=== PATIENT | male | born 1950 | race Caucasian/White ===

== ENCOUNTER 2018-04-18 13:24 | Outpatient (REF) | payer MEDICARE, BC, SELFPAY ==
[2018-04-18 14:46] LABS: HCT 42.4 % (40.0-50.0); HGB 14.8 g/dL (13.5-17.5); Mean Corp. HGB Concentration 34.9 g/dL (32.0-36.0); Mean Corpuscular Hemoglobin 32.7 pg (27.0-33.0); Mean Corpuscular Volume 93.6 fL (80-95); Mean Platelet Volume 10.5 fL (8.0-11.0); Platelet Count 221 x1000/uL (130-400); RBC 4.53 m/cumm (4.50-6.00); RBC Distribution Width 13.1 % (11.8-14.1); White Blood Cell Count 6.54 k/cumm (4.4-10.8)
[2018-04-19 09:47] LABS: PSA, Screening 1.2 ng/ml (0-4.5)
== END 2018-04-18 13:44 ==
LOC: NCHCN 13:24
PROVIDERS: Visit Provider Family Medicine
DX: N28.9 Disorder of kidney and ureter, unspecified (principal); Z12.5 Encounter for screening for malignant neoplasm of prostate
CPT/HCPCS: 84153; 85027

== ENCOUNTER → 2018-05-20 08:34 | Outpatient (BNVA) | payer MEDICARE, BC, SELFPAY | PROVIDERS: Referring Provider Family Medicine; Visit Provider Urology | DX: N40.1 Benign prostatic hyperplasia with lower urinary tract symptoms (principal); N52.01 Erectile dysfunction due to arterial insufficiency; I10 Essential (primary) hypertension; F17.210 Nicotine dependence, cigarettes, uncomplicated | CPT/HCPCS: 81003; 99205; 99215 ==

== ENCOUNTER 2018-08-31 10:08 | Outpatient (CLI) | payer MEDICARE, BC, SELFPAY | END 2018-08-31 10:28 | PROVIDERS: Visit Provider Internal Medicine Interventional Cardiology | DX: I99.9 Unspecified disorder of circulatory system (principal); I44.0 Atrioventricular block, first degree; I10 Essential (primary) hypertension | CPT/HCPCS: 99204; 99214; 93005; 93010 ==

== ENCOUNTER 2019-02-16 02:21 | Outpatient (CLI) | payer MEDICARE, BC, SELFPAY | END 2019-02-16 02:41 | PROVIDERS: PCP Family Medicine; Visit Provider Internal Medicine Interventional Cardiology | DX: I44.0 Atrioventricular block, first degree (principal); I49.1 Atrial premature depolarization; I44.1 Atrioventricular block, second degree; R00.1 Bradycardia, unspecified | CPT/HCPCS: 93225 ==

== ENCOUNTER 2019-02-18 13:17 | Outpatient (CLI) | payer MEDICARE, BC, SELFPAY ==
--- NOTE | 2019-02-20 11:31 | HOLTER_ITS ---
DATE OF DICTATION: February 20, 2019 48-HOUR STUDY Baseline rhythm sinus with first-degree AV block. Very frequent single PAC. No SVT. No atrial fibrillation. Rare single PVC. Eight couplet. No VT. Frequent Wenckebach-type block with occasional 2:1 cycling appreciated. Wenckebach block occurs in b oth nocturnal and daytime hours. Nocturnal heart rates as low as 30-35 bpm, sinus bradycardia with Wenckebach block. No symptoms. Average heart rate 69 bpm, range 46-110 bpm.
== END 2019-02-18 13:37 ==
PROVIDERS: PCP Family Medicine; Visit Provider Family Medicine
DX: I44.0 Atrioventricular block, first degree (principal); I49.1 Atrial premature depolarization; I44.1 Atrioventricular block, second degree; R00.1 Bradycardia, unspecified
CPT/HCPCS: 93226

== ENCOUNTER 2019-02-20 09:05 | Outpatient (CLI) | payer MEDICARE, BC, SELFPAY | END 2019-02-20 09:25 | PROVIDERS: PCP Family Medicine; Referring Provider Family Medicine; Visit Provider Internal Medicine Interventional Cardiology | DX: I44.0 Atrioventricular block, first degree (principal); I49.1 Atrial premature depolarization; I44.1 Atrioventricular block, second degree; R00.1 Bradycardia, unspecified | CPT/HCPCS: 93227 ==

== ENCOUNTER 2019-02-27 08:12 | Outpatient (CLI) | payer MEDICARE, BC, SELFPAY | END 2019-02-27 08:32 | PROVIDERS: PCP Family Medicine; Visit Provider Internal Medicine Interventional Cardiology | DX: I44.0 Atrioventricular block, first degree (principal); I10 Essential (primary) hypertension; Z79.82 Long term (current) use of aspirin | CPT/HCPCS: 93005; 93010; 99213 ==

== ENCOUNTER 2019-04-10 07:54 | Outpatient (CLI) | payer MEDICARE, BC, SELFPAY | END 2019-04-10 08:14 | PROVIDERS: PCP Family Medicine; Visit Provider Internal Medicine Interventional Cardiology | DX: I99.9 Unspecified disorder of circulatory system (principal); I44.30 Unspecified atrioventricular block; I10 Essential (primary) hypertension; Z79.82 Long term (current) use of aspirin | CPT/HCPCS: 93005; 93010; 99213 ==

== ENCOUNTER 2019-04-13 08:35 | Outpatient (REF) | payer MEDICARE, BC, SELFPAY ==
[2019-04-13 11:04] LABS: HCT 41.6 % (40.0-50.0); HGB 14.8 g/dL (13.5-17.5); Mean Corp. HGB Concentration 35.6 g/dL (32.0-36.0); Mean Corpuscular Volume 92.7 fL (80-95); Mean Platelet Volume 10.3 fL (8.0-11.0); Platelet Count 194 x1000/uL (130-400); RBC 4.49 m/cumm (4.50-6.00); RBC Distribution Width 12.5 % (11.8-14.1); White Blood Cell Count 4.58 k/cumm (4.4-10.8)
[2019-04-13 11:33] LABS: ALT 67 U/L (16-63); AST 28 U/L (15-37); Albumin 4.2 g/dL (3.4-5.0); Alkaline Phosphatase 56 U/L (46-116); Anion Gap 7.2 mmol/L (3-11); BUN 28 mg/dL (7-18); Bilirubin, Total 0.7 mg/dL (0.2-1.0); CO2 31.8 mmol/L (21.0-32.0); CREATININE 0.96 mg/dL (0.70-1.30); Calcium 9.8 mg/dL (8.5-10.1); Calculated LDL 101 mg/dL; Chloride 103 mmol/L (98-107); Cholesterol 182 mg/dL (50-200); Glucose 139 mg/dL (70-100); HDL Cholesterol 52 mg/dL (40-60); Potassium 4.6 mmol/L (3.5-5.1); Sodium 142 mmol/L (136-145); Triglyceride 149 mg/dL (30-150)
[2019-04-14 08:46] LABS: PSA, Screening 1.4 ng/ml (0-4.5)
== END 2019-04-13 08:55 ==
LOC: NCHCO 08:35
PROVIDERS: PCP Family Medicine; Visit Provider Family Medicine
DX: E78.5 Hyperlipidemia, unspecified (principal); N28.9 Disorder of kidney and ureter, unspecified; I10 Essential (primary) hypertension; Z12.5 Encounter for screening for malignant neoplasm of prostate
CPT/HCPCS: 80053; 80061; 84153; 85027

== ENCOUNTER 2019-07-04 09:30 | Outpatient (CLI) | payer MEDICARE, BC, SELFPAY ==
--- NOTE | 2019-07-04 10:56 | DI.RAD_ITS ---
EXAM: XR ANKLE LT COMPLETE CLINICAL HISTORY: LT ANKLE PAIN, M25.572 TECHNIQUE: 2D digital imaging was performed. COMPARISON: No exams were available for comparison FINDINGS: BONES: No acute fracture is present. No bony destructive lesion is seen. JOINTS:The ankle mortise is normally aligned. SOFT TISSUE: Normal. IMPRESSION: Unremarkable radiographs of the left ankle.
== END 2019-07-04 09:50 ==
PROVIDERS: PCP Family Medicine; Visit Provider Nurse Practitioner Family
DX: M25.572 Pain in left ankle and joints of left foot (principal)
CPT/HCPCS: 73610

== ENCOUNTER → 2019-11-21 09:07 | Outpatient (BNVA) | payer MEDICARE, BC, SELFPAY | PROVIDERS: PCP Family Medicine; Referring Provider Family Medicine; Visit Provider Orthopaedic Surgery | DX: M76.822 Posterior tibial tendinitis, left leg (principal) | CPT/HCPCS: 99201; 99213 ==

== ENCOUNTER 2019-11-29 00:38 | Outpatient (CLI) | payer MEDICARE, BC, SELFPAY ==
--- NOTE | 2019-11-29 | DI.MRI_ITS ---
EXAM: MR LOWER JOINT LT WO CLINICAL HISTORY: LT POSTERIOR TIBIAL TENDON TEAR TECHNIQUE: Multiplanar multisequence MRI was performed without intravenous contrast. COMPARISON: CR XR ANKLE LT COMPLETE from 07/04/2019 FINDINGS: BONES/JOINTS: No fracture or contusion pattern. Nonspecific subchondral cyst is seen in the distal ti tarah. The talar dome is smooth. The ankle mortise is maintained. No joint effusion is present. LIGAMENTS: The tibiofibular and calcaneofibular ligaments are intact. The talofibular ligaments are i ntact. The deltoid ligament is intact. The syndesmosis is unremarkable. Sinus tarsi is normal. MUSCULOTENDINOUS STRUCTURES: Achilles tendon: Unremarkable. Plantar fascia: Unremarkable. Anterior Extensor tendons: Unremarkable. Posterior Tibialis: Unremarkable. Flexor Digitorum longus: Unremarkable. Flexor Hallicus longus: Unremarkable. Peroneus longus: Unremarkable. Peroneus brevis:Unremarkable. SOFT TISSUES: Unremarkable. OTHER FINDINGS: None. IMPRESSION: Unremarkable MRI of the left ankle. DATA REPOSITORY:
== END 2019-11-29 00:58 ==
PROVIDERS: PCP Family Medicine; Visit Provider Orthopaedic Surgery
DX: M76.822 Posterior tibial tendinitis, left leg (principal)
CPT/HCPCS: 73721

== ENCOUNTER → 2019-12-05 08:45 | Outpatient (BNVA) | payer MEDICARE, BC, SELFPAY | PROVIDERS: PCP Family Medicine; Referring Provider Family Medicine; Visit Provider Orthopaedic Surgery | DX: M76.822 Posterior tibial tendinitis, left leg (principal) | CPT/HCPCS: 20550; 99213; J1030 ==

== ENCOUNTER → 2020-01-02 08:59 | Outpatient (BNVA) | payer MEDICARE, BC, SELFPAY | PROVIDERS: PCP Family Medicine; Referring Provider Family Medicine; Visit Provider Orthopaedic Surgery | DX: M76.822 Posterior tibial tendinitis, left leg (principal); Z98.890 Other specified postprocedural states | CPT/HCPCS: 99213 ==

== ENCOUNTER → 2020-04-23 11:39 | Outpatient (BNVA) | payer MEDICARE, BC, SELFPAY | PROVIDERS: PCP Family Medicine; Referring Provider Family Medicine; Visit Provider Orthopaedic Surgery | DX: M76.821 Posterior tibial tendinitis, right leg (principal); Z98.890 Other specified postprocedural states; I10 Essential (primary) hypertension | CPT/HCPCS: 20550; 99213; J1030 ==

== ENCOUNTER 2020-04-25 19:09 | Outpatient (REF) | payer MEDICARE, BC, SELFPAY ==
[2020-04-25 21:12] LABS: Abs Immature Grans 0.03 10^3/uL (0.0-0.06); Absolute Basophil Count 0.05 10^3/uL (0.0-0.2); Absolute Eosinophil Count 0.26 10^3/uL (0.0-0.7); Absolute Lymphocyte Count 1.89 10^3/uL (1.2-3.4); Absolute Monocyte Count 0.87 10^3/uL (0.1-0.8); Absolute Neutrophil Count 5.28 10^3/uL (1.2-6.7); Basophils % 0.6; Eosinophils % 3.1; HCT 43.6 % (40.0-50.0); HGB 15.2 g/dL (13.5-17.5); Immature Grans % 0.4; Lymphocytes % 22.6; MCH 32.5 pg (27.0-33.0); MCHC 34.9 % (32.0-36.0); MCV 93.2 fL (80-95); MPV 10.7 fL (8.0-11.0); Monocytes % 10.4; Neutrophils % 62.9; Nucleated RBC 0 %; Platelet Count 237 10^3/uL (130-400); RBC 4.68 10^6/uL (4.36-5.78); RDW 12.4 % (11.8-14.1); RDW-SD 42.6 fL; WBC 8.38 10^3/uL (4.4-10.8)
[2020-04-25 22:12] LABS: ESR 9 mm/hr (1-20)
== END 2020-04-25 19:29 ==
LOC: NCHCN 19:09
PROVIDERS: PCP Family Medicine; Visit Provider Internal Medicine
DX: R51.9 Headache, unspecified (principal); M79.10 Myalgia, unspecified site
CPT/HCPCS: 85652; 85025

== ENCOUNTER 2020-05-02 02:25 | Outpatient (CLI) | payer MEDICARE, BC, SELFPAY ==
--- NOTE | 2020-05-02 | DI.CT_ITS ---
EXAM: CT HEAD WO CLINICAL HISTORY: HEADACHE,R51,TENDERNESS TEMPORAL ARTERY,INTRAOCULAR PRESSURE,? SINUSITIS. TECHNIQUE: Imaging Protocol: Axial computed tomography images with coronal and sagittal reformatted images were created and reviewed COMPARISON: No exams were available for comparison FINDINGS: Ventricles and Extra axial spaces: Normal in size and morphology for the patient's age. Hemorrhage: None. Cerebral parenchyma: Normal. Midline shift: None. Brainstem/Cerebellum: Normal. Calvarium: Normal. Visualized Paranasal sinuses/Mastoids: There is mild mucosal thickening of the ethmoid sinuses and le ft frontal sinus. The maxillary sinuses are partially visualized and show mild mucosal thickening. The mastoid air cells are clear. No air-fluid levels are seen. Soft Tissues: Unremarkable. IMPRESSION: Mild sinus mucosal thickening. No air-fluid levels.. No acute intracranial process. RADIATION DOSE DELIVERED: 897.21mGy.cm Total DLP DATA REPOSITORY: All CT scans at this facility are submitted to the National Radiology Data Registry (NRDR) Dose Index Registry (DIR) with the [employer] (ACR). RADIATION OPTIMIZATION: All CT scans at this facility use at least one of these dose optimization te chniques: automated exposure control; mA and/or kV adjustment per patient size (includes targeted exa ms where dose is matched to clinical indication); or iterative reconstruction.
== END 2020-05-02 02:45 ==
PROVIDERS: PCP Family Medicine; Visit Provider Internal Medicine
DX: R51.9 Headache, unspecified (principal); J34.89 Other specified disorders of nose and nasal sinuses
CPT/HCPCS: 70450

== ENCOUNTER 2020-05-24 14:19 | Outpatient (CLI) | payer MEDICARE, BC, SELFPAY ==
[2020-05-28 19:03] LABS: Patient Race White; SARS-CoV-2 RNA Undetected (Undetected); SARS-CoV-2 Specimen Source Nasal
== END 2020-05-24 14:39 ==
PROVIDERS: PCP Family Medicine; Visit Provider Family Medicine
DX: R05 Cough (principal)
CPT/HCPCS: U0003

== ENCOUNTER 2020-06-24 07:18 | Outpatient (RCR) | payer MEDICARE, BC, SELFPAY ==
--- NOTE | 2020-06-24 09:00 | HOLTER_ITS ---
APPROVED REPORT Exam Type: HOLTER MONITOR APPLICATION Reason for Test: Palpitations Patient Location: O Conclusion This is a 48-hour Holter monitor ordered for indication of palpitations. ???The patient was in normal sinus rhythm for majority of the recording with an average heart rate of 64 bpm. ???There were no episodes of supraventricular tachycardia nor any episodes of ventricular tachycardia . ???There were 11 total PVCs. ???There were no episodes of atrial fibrillation, no pauses greater than 3 seconds. ???There were occasional singular nonconducted P waves that were not accompanied by symptoms. Recomm end repeating monitor of longer duration to evaluate for possible second-degree heart block
== END 2020-07-11 23:59 | disposition home or self-care (01) ==
LOC: RT 07:18
PROVIDERS: PCP Family Medicine; Visit Provider Nurse Practitioner Family
DX: R00.2 Palpitations (principal); I49.3 Ventricular premature depolarization
CPT/HCPCS: 93227; 93225; 93226

== ENCOUNTER → 2020-07-04 07:59 | Outpatient (BNVA) | payer MEDICARE, BC, SELFPAY | PROVIDERS: PCP Family Medicine; Referring Provider Family Medicine; Visit Provider Student in an Organized Health Care Education/Training Program | DX: G56.01 Carpal tunnel syndrome, right upper limb (principal); M76.822 Posterior tibial tendinitis, left leg; I10 Essential (primary) hypertension | CPT/HCPCS: 99214 ==

== ENCOUNTER → 2020-08-12 13:51 | Outpatient (BNVA) | payer MEDICARE, BC, SELFPAY | PROVIDERS: PCP Family Medicine; Referring Provider Family Medicine; Visit Provider Internal Medicine Cardiovascular Disease | DX: R00.2 Palpitations (principal) | CPT/HCPCS: 99214 ==

== ENCOUNTER → 2020-08-27 14:03 | Outpatient (BNVA) | payer MEDICARE, BC, SELFPAY | PROVIDERS: PCP Family Medicine; Referring Provider Student in an Organized Health Care Education/Training Program; Visit Provider Psychiatry & Neurology Neurology | DX: G56.01 Carpal tunnel syndrome, right upper limb (principal) | CPT/HCPCS: 95886; 95908; 95911; 99203; 99214 ==

== ENCOUNTER 2020-09-12 02:46 | Outpatient (CLI) | payer MEDICARE, BC, SELFPAY ==
--- NOTE | 2020-09-12 10:09 | DI.US_ITS ---
APPROVED REPORT EXAM: Comprehensive 2D, Doppler, and color-flow Echocardiogram Patient Location: Out-Patient [employer] Operator: Yani Duarte RDCS (AE) Indications: Palpitations Other Information Study Quality: Good Conclusion Left Ventricle : The left ventricle is normal size. The left ventricular systolic function is normal. The left ventricular ejection fraction is within the normal range. There is normal left ventricular wall thickness. There is normal LV segmental wall motion. The left ventricular diastolic function is normal. LVEF is 60-65%. Right Ventricle : The right ventricle is normal size. The right ventricular systolic function is norm al. The RVSP is 31.4mmHg. Atria : The left atrium size is normal. The right atrium size is normal. Valves: There are no hemodynamically significant valvular lesions. Great Vessels : The aortic root is normal in size. The ascending aorta is mildly dilated. Aortic arch is normal in caliber. IVC is normal in size and collapses >50% with inspiration. Wall motion Left Ventricle The left ventricle is normal size. The left ventricular systolic function is normal. The left ventric ular ejection fraction is within the normal range. There is normal left ventricular wall thickness. T here is normal LV segmental wall motion. The left ventricular diastolic function is normal. There is no ventricular septal defect visualized. LVEF is 60-65%. Right Ventricle The right ventricle is normal size. The right ventricular systolic function is normal. The RVSP is 31 .4mmHg. Atria The left atrium size is normal. The right atrium size is normal. The interatrial septum is intact wit h no evidence for an atrial septal defect. Aortic Valve The aortic valve is normal in structure. Aortic valve is trileaflet. There is no aortic valvular sten osis. No aortic regurgitation is present. Mitral Valve Mild mitral annular calcification. No evidence of mitral valve stenosis. Trace mitral regurgitation. Tricuspid Valve The tricuspid valve is normal in structure. There is no tricuspid valve stenosis. Trace tricuspid reg urgitation. Pulmonic Valve The pulmonary valve is normal in structure. There is no pulmonic valvular stenosis. Trace pulmonic re gurgitation. Great Vessels The aortic root is normal in size. The ascending aorta is mildly dilated. Aortic arch is normal in ca liber. IVC is normal in size and collapses >50% with inspiration. Pericardium There is no pericardial effusion. 2D Dimensions IVSD d PLAX 0.99 cm M: 0.6-1.2 LV Vol A2C d MOD 99.3 mL LVPW d PLAX 0.98 cm M: 0.6 - 1.2 LV Vol A4C d MOD 93.4 mL LVID d PLAX 4.36 cm M: 4.2 - 5.8 LA vol/ BSA A2C s A-L 23.1 mL/m2 LVDs 2.80 cm M: 2.5 - 4.0 LA vol/ BSA A4C s A-L 22.7 mL/m2 Ao Root d 2.99 cm M: 3.1 - 3.7 LA Vol/ BSA Biplane s A-L 23.1 mL/m2 RA Area A4C 10.61 cm2 LA Area A4C s MOD 16.06 cm2 RA Vol/ BSA A4C s A-L 12.1 mL/m2 LA Area A2C s MOD 16.34 cm2 Ao Asc Diam d 3.50 cm M: 2.6 - 3.4 LV EF A4C MOD 59.3 % LV EF Teichholz 65.1 % LV EF A2C MOD 63.3 % LVEF (Hall's) 61.30 % M: 52 - 72 LV EF Biplane MOD 61.3 % LV Volume 73.97 mL M: 62 - 150 SV 59.92 mL LV Volume Index 38.12 mL/m2 M: 34 - 74 SV Index 30.77 mL/m2 LV Vol Biplane MOD 97.7 mL FS 35.40 % M-Mode TAPSE 2.44 cm (M/F) >1.7 LV Diastology MV E' medial 0.067 (>0.07 m/s) E/A Ratio 1.1 LV E/e MED 10.60 (<14) MV E Vmax 0.71 (0.4-1.3 m/s) MV E' lateral 0.079 (>0.1 m/s) MV A Vmax 0.65 (0.4-1.3 m/s) LV E/e LAT 8.95 (<14) MV E/A Ratio 1.09 MV E/E' medial 10.61 MV E/E' lateral 8.97 Aortic Valve LVOT Area 3.32 cm2 AoV Area Vmax 2.82 cm2 LVOT Vmax 1.06 m/s AoV Area/ BSA (Vmax) 1.45 cm2/m2 LVOT Mean Shawn. 0.71 m/s HUNG Mean Shawn. 2.71 cm2 LVOT Peak Grad 4.5 mmHg HUNG Mean Shawn. Index 1.39 cm2/m2 LVOT Mean Grad 2.3 mmHg LVOT VTI 0.215 m LVOT Diam s 2.05 cm AoV Vmax 1.25 m/s Velocity Ratio 0.84 AoV Mean Shawn. 0.87 m/s AoV Peak Grad 6.3 mmHg LVOT SV 71.18 mL AoV Mean Grad 3.4 mmHg AoV VTI 0.242 m AoV Area VTI 2.94 cm2 AoV Area/ BSA (VTI) 1.51 cm/m2 Mitral Valve MV DT 227 (160-240 msec) MV PHT 66 msec MV Area PHT 3.35 cm2 MV VTI 0.183 m MV Area VTI 3.89 (4.0-6.0 cm2) Pulmonary Valve PV Vmax 1.06 (0.5-1.5 m/s) RVOT Peak Gr. 2.52 mmHg PV Peak Grad 4.5 mmHg RVOT Mean Gr. 1.30 mmHg PV Mean Grad 2.4 mmHg RVOT VTI 0.189 m PV VTI 0.234 m RVOT Vmax 0.79 m/s Tricuspid Valve TR Peak Grad 28.3 mmHg TR Vmax 2.66 m/s RA Pressure 3.00 mmHg RVSP (TR) 31.4 mmHg
== END 2020-09-12 03:06 ==
PROVIDERS: PCP Family Medicine; Visit Provider Internal Medicine Cardiovascular Disease
DX: R00.2 Palpitations (principal); I77.810 Thoracic aortic ectasia
CPT/HCPCS: 93306

== ENCOUNTER 2020-10-18 16:35 | Outpatient (REF) | payer MEDICARE, BC, SELFPAY ==
[2020-10-18 14:16] LABS: ALT 44 U/L (16-63); AST 20 U/L (15-37); Albumin 4.5 g/dL (3.4-5.0); Alkaline Phosphatase 68 U/L (46-116); Anion Gap 10.7 mmol/L (3-11); BUN 24 mg/dL (7-18); Bilirubin, Total 0.9 mg/dL (0.2-1.0); CO2 30.3 mmol/L (21.0-32.0); CREATININE 1.1 mg/dL (0.70-1.30); Calculated LDL 87 mg/dL (<100); Chloride 102 mmol/L (98-107); Cholesterol 168 mg/dL (<200); Glucose 115 mg/dL (74-106); HDL Cholesterol 52 mg/dL (40-60); Potassium 3.8 mmol/L (3.5-5.1); Sodium 143 mmol/L (136-145); Total Protein 7.4 g/dL (6.4-8.2); Triglyceride 146 mg/dL (<150)
== END 2020-10-18 16:36 | disposition home or self-care (01) ==
LOC: NCHCN 16:35
PROVIDERS: PCP Family Medicine; Visit Provider Family Medicine
DX: R00.2 Palpitations (principal); M79.10 Myalgia, unspecified site; R73.03 Prediabetes; E78.5 Hyperlipidemia, unspecified; I10 Essential (primary) hypertension
CPT/HCPCS: 80053; 80061; 85027

== ENCOUNTER 2021-01-15 15:14 | Emergency (ER) | payer MEDICARE, BC, SELFPAY ==
[2021-01-15] VITALS (48 sets, daily range): BP systolic 143–194; BP diastolic 65–92; PULSE 50–83; RESP 10–26; TEMP 37.1; O2SAT 95–99
--- NOTE | 2021-01-15 15:15 | RT.EKG_ITS ---
APPROVED REPORT Exam: Resting ECG Reason for Exam: rapid heart rate Patient Location: E HR:67 bpm ECG Measurements Heart Rate 67 AXIS WA 344 P 19 QRSd 91 QRS 4 QT 403 T 61 QTc 427 Conclusion Sinus rhythm...normal P axis, V-rate 60- 99 Prolonged WA interval...WA >220, V-rate 50- 90. Sinus. Prolonged WA c/w 1st degree block, similar to previous EKG. No STEMI. I have reviewed and interpreted ECG and agree with software generated interpretation.
--- NOTE | 2021-01-15 15:16 | W.ED.GENAD ---
Discharge Plan Disposition Patient Disposition: HOME Condition: Improving Discharge Details Clinical Impression: Palpitations, Second degree AV block, Mobitz type I Primary Care Provider: Aleta Barone ED Provider: Tiffanie Taylor Home Meds and New Rx's Prescriptions: Continued losartan 50 mg tablet 75 mg PO DAILY RF: 0 Flovent Diskus 50 MCG blister with device 50 mcg Inhalation BID RF: 0 albuterol sulfate 8.5 GM HFA aerosol inhaler 2 puff Inhalation Q6H PRN RF: 0 atorvastatin 20 mg tablet 20 mg PO DAILY Qty: 90 RF: 3 omeprazole 20 mg capsule,delayed release(DR/EC) 20 mg PO DAILY RF: 0 zolpidem [Ambien] 10 mg tablet PO PRN (Reason: insomnia) RF: 0 Veramyst 10 GM spray,suspension 2 spry Intranasal PRN PRNRF: 0 ibuprofen 200 mg capsule 400 mg PO PRN PRNRF: 0 Discontinued chlorthalidone 25 MG tablet 25 mg PO DAILY RF: 0 Discharge Instructions Instructions: Heart Palpitations (ED), Hypokalemia (ED), Heart Block (ED) Additional Instructions: Your potassium was slightly low today. You can supplement potassium in your diet with bananas, garlic, spinach, kale, tomato, etc. Drink plenty of fluids and get plenty of rest. Stop taking your chlorathalidone. Increase your losartan 50mg from 1.5 tabs (75mg) to 2 tabs (100mg) once daily. You will receive a call from [facility] cardiology for follow-up in the outpatient clinic for an electrophysiological (EP) study. You also had a thyroid hormone test and Tick and Lyme panel drawn today. These results are still pending and you can follow-up with cardiology regarding these results. Return immediately to the emergency department if you develop any worsening or new concerning symptoms such as dizziness, feeling faint or fainting, chest pain, shortness of breath or any other concerns. Referrals: Hakan Branham MD [ CONSULTING PHYSICIAN] - Discharge Data Discharge Date/Time-TO BE ENTERED AT DEPARTURE: 01/15/21 20:02 Discharge Physician: Tiffanie Taylor Medical Decision Making 70-year-old male with a history of hypertension, former smoker, daily alcohol drinker presents for palpitations of the past 2 days and fatigue and shortness of breath with mowing the lawn today. Denies any symptoms at present. EKG notes a rate of 67, sinus, first-degree block but no STEMI. Blood pressure hypertensive at 170/86, remainder vitals within normal limits. Patient appears comfortable and nontoxic. Differential diagnosis includes arrhythmia, electrolyte abnormality, dehydration, ACS, PE. History and presentation does not appear consistent with dissection. Will obtain a cardiac work-up including D-dimer and chest x-ray and give fluids and reassess. Labs and imaging reviewed and unremarkable. Potassium 3.4, repleted. Troponin negative. BNP and D-dimer negative. Chest x-ray negative for acute disease. Review of patient's records note that he has had an MPI stress test 2011 which was negative. He had a Holter monitor placed in June 2020 for palpitations which essentially noted normal sinus rhythm for the majority with an average heart rate of 64. There were a total of 11 PVCs without any episodes of A. fib, SVT, V. tach and with no pauses greater than 3 seconds. He did have occasional singular nonconducted P waves that were not accompanied by symptoms. At that time they recommended repeat monitor of longer duration to evaluate for possible second-degree heart block. Patient also had an echocardiogram in September 2020 for palpitations which noted normal left ventricular systolic function with an EF of 60 to 65%. Patient reassessed and he states he occasionally still feels the palpitations but otherwise denies any complaints of chest pain, shortness of breath or dizziness. Patient has been observed on the monitor since arrival and noted to be in sinus rhythm with rate variation of 50s to 60s with no pauses greater than a few seconds. It appears that these findings are consistent with his findings on the Holter monitor in June. We will place another Holter monitor with plans for follow-up with cardiology and consideration for monitor of longer duration. Will obtain a repeat troponin and EKG. Repeat troponin negative. Repeat EKG notes rate of 47 with 2nd degree block Melanie Goldberg. Will call [facility] cardiology for recommendations. Discussed with [facility] cardiology who reviewed the EKGs. Do not see any acute indication for transfer as patient is currently asymptomatic and there was no report of near syncope or syncope. Recommend giving an additional dose of potassium, obtaining a TSH and free T4, tick and Lyme panel. Recommend follow-up in the outpatient clinic for EP study. Recommend stopping the chlorthalidone which is likely contributing to his hypokalemia and increasing losartan to 100 mg daily. They will follow up with patient in the next couple days. Advised to return here immediately with any near-syncope or syncope. Patient feels comfortable with plan and would prefer to go home. Usual and customary return precautions given prior to discharge. Medical Records Medical records reviewed: Yes I reviewed the patient's medical records. Imaging Data Radiologic Study: Radiologist's impression: XR Chest Exam date and time: 01/15/2021 3:51 PM Age: 70 years old Clinical indication: Other: Palpitations, SOB, rule out acute disease TECHNIQUE: Imaging protocol: XR of the chest. Views: 2 views. COMPARISON: No relevant prior studies available. FINDINGS: Lungs: Hyperinflation, without acute airspace disease. Pleural spaces: No pleural effusion. Heart/Mediastinum: Epicardial fat, without cardiomegaly. Bones/joints: Mild degenerative change. IMPRESSION: Hyperinflation, without acute airspace disease. Lab Data Lab results reviewed: Yes I reviewed the patient's lab results. Labs: Laboratory Tests Range/Units 01/15/21 01/15/21 01/15/21 15:17 15:30 15:30 WBC (4.4-10.8) 10^3/uL 7.67 RBC (4.36-5.78) 10^6/uL 4.78 Hgb (13.5-17.5) g/dL 15.2 Hct (40.0-50.0) % 43.3 MCV (80-95) fL 90.6 MCH (27.0-33.0) pg 31.8 MCHC (32.0-36.0) % 35.1 RDW (11.8-14.1) % 12.3 Plt Count (130-400) 10^3/uL 218 MPV (8.0-11.0) fL 10.3 Immature Gran % 0.3 Neutrophils % 62.1 Lymphocytes % 22.9 Monocytes % 8.5 Eosinophils % 5.5 Basophils % 0.7 Nucleated RBC % % 0 Absolute Neutrophils (1.2-6.7) 10^3/uL 4.77 Absolute Lymphocytes (1.2-3.4) 10^3/uL 1.76 Absolute Monocytes (0.1-0.8) 10^3/uL 0.65 Absolute Eosinophils (0.0-0.7) 10^3/uL 0.42 Absolute Basophils (0.0-0.2) 10^3/uL 0.05 D-Dimer (<500) ng/mlFEU Sodium (136-145) mmol/L 143 Potassium (3.5-5.1) mmol/L 3.4 L Chloride (98-107) mmol/L 103 Carbon Dioxide (21.0-32.0) mmol/L 28.7 Anion Gap (3-11) mmol/L 11.3 H BUN (7-18) mg/dL 32 H Creatinine (0.70-1.30) mg/dL 1.2 Estimated GFR/1.73 m2 (mL/min/1.73m2) >= 60.00 Glucose (74-106) mg/dL 126 H Calcium (8.5-10.1) mg/dL 9.7 Magnesium (1.8-2.4) mg/dL 1.8 Total Bilirubin (0.2-1.0) mg/dL 0.8 AST (15-37) U/L 18 ALT (16-63) U/L 49 Alkaline Phosphatase (46-116) U/L 62 Troponin I (<0.06) ng/mL < 0.05 NT-Pro-B Natriuret Pep (<300) pg/mL 61 Total Protein (6.4-8.2) g/dL 7.6 Albumin (3.4-5.0) g/dL 4.4 TSH (0.36-3.74) uIU/mL Range/Units 01/15/21 01/15/21 01/15/21 15:30 15:54 18:25 WBC (4.4-10.8) 10^3/uL RBC (4.36-5.78) 10^6/uL Hgb (13.5-17.5) g/dL Hct (40.0-50.0) % MCV (80-95) fL MCH (27.0-33.0) pg MCHC (32.0-36.0) % RDW (11.8-14.1) % Plt Count (130-400) 10^3/uL MPV (8.0-11.0) fL Immature Gran % Neutrophils % Lymphocytes % Monocytes % Eosinophils % Basophils % Nucleated RBC % % Absolute Neutrophils (1.2-6.7) 10^3/uL Absolute Lymphocytes (1.2-3.4) 10^3/uL Absolute Monocytes (0.1-0.8) 10^3/uL Absolute Eosinophils (0.0-0.7) 10^3/uL Absolute Basophils (0.0-0.2) 10^3/uL D-Dimer (<500) ng/mlFEU 194 Sodium (136-145) mmol/L Potassium (3.5-5.1) mmol/L Chloride (98-107) mmol/L Carbon Dioxide (21.0-32.0) mmol/L Anion Gap (3-11) mmol/L BUN (7-18) mg/dL Creatinine (0.70-1.30) mg/dL Estimated GFR/1.73 m2 (mL/min/1.73m2) Glucose (74-106) mg/dL Calcium (8.5-10.1) mg/dL Magnesium (1.8-2.4) mg/dL Total Bilirubin (0.2-1.0) mg/dL AST (15-37) U/L ALT (16-63) U/L Alkaline Phosphatase (46-116) U/L Troponin I (<0.06) ng/mL < 0.05 NT-Pro-B Natriuret Pep (<300) pg/mL Total Protein (6.4-8.2) g/dL Albumin (3.4-5.0) g/dL TSH (0.36-3.74) uIU/mL 2.76 ECG Data Attestation: I personally reviewed and interpreted this ECG (s) as follows: Interpretation: #1 -- Rate of 67, sinus, first-degree block. NJ 344. QTc 427. No STEMI. #2 -- Rate of 47, sinus, PACs, second-degree Mobitz type I. No STEMI. HPI General Mode of arrival: ambulatory. Date/Time Provider Initiated Documentation: 01/15/21 15:15. Limitations to Documentation: no limitations. Information obtained by: patient. HPI Narrative: Patient is a 70-year-old male who presents from home with a complaint palpitations for the past 2 days, worse today with a feeling of fatigue and shortness of breath while cutting his grass. He denies any symptoms at present. He states he has been told in the past before that he has a history of first-degree heart block but states he has never had symptoms before. He states he is feeling a sensation of fast heart rate or skipped beats at rest and with activity. He denies any chest pain, dizziness, nausea or vomiting with these episodes. He denies any change in his appetite, fever, cough, change in medications, recent travel, recent tick bites or change in sleep pattern. Related Data Home Medications Medication Instructions Recorded Confirmed Flovent Diskus 50 mcg INHALATION BID puff NS 01/18/13 01/15/21 Veramyst 2 spry INTRANASAL PRN PRN 02/14/13 01/15/21 albuterol sulfate 2 puff INHALATION Q6H PRN inhaler 05/03/13 01/15/21 losartan 50 mg tablet 75 mg PO DAILY tab 02/27/19 01/15/21 atorvastatin 20 mg tablet 20 mg PO DAILY #90 tab 05/28/20 01/15/21 omeprazole 20 mg capsule,delayed 20 mg PO DAILY 07/04/20 01/15/21 release zolpidem 10 mg tablet PO PRN 07/04/20 ibuprofen 200 mg capsule 400 mg PO PRN PRN 08/27/20 01/15/21 Previous Rx's Medication Instructions Recorded atorvastatin 20 mg tablet 20 mg PO DAILY #90 tab 05/28/20 Allergies Allergy/AdvReac Type Severity Reaction Status Date / Time lisinopril AdvReac Mild Visual Verified 01/15/21 15:20 Disturbance Review of Systems All systems reviewed & are unremarkable except as noted in HPI and below Constitutional Constitutional: Reports as per HPI, Denies chills and Denies fever(s) Eyes Eyes: Denies blurry vision ENT Ears, Nose, Mouth, and Throat: Denies dizziness, Denies sore throat and Denies throat swelling Cardiovascular Cardiovascular: Denies chest pain, Reports rapid heart rate and Denies dyspnea Respiratory Respiratory: Denies cough and Denies dyspnea Gastrointestinal Gastrointestinal: Denies abdominal pain, Denies diarrhea and Denies vomiting Genitourinary Genitourinary: Denies hematuria and Denies dysuria Musculoskeletal Musculoskeletal: Denies back pain and Denies numbness Integumentary/Breasts Skin/Breast: Denies lesions and Denies rash Neurologic Neurologic: Denies dizziness, Denies localized weakness and Denies numbness Allergic/Immunologic Allergic/Immunologic: Denies throat swelling PFSH Medical History Asthma Atrioventricular block, first degree Barretts esophagus Chronic low back pain Claudication Hypertension Tobacco consumption Social History Smoking/Tobacco Use Status: Former Tobacco Use Quit Date: 07/12/87 Pack-years: 17 Tobacco: How many years used: 17 Smoking risk assessment performed?: Yes Alcohol Intake: current Alcohol Intake frequency: 0-2 drinks per day Drug use: Never Substance use type: does not use Household members: spouse and children Number of Children: 3 Pets and animals: Yes Current gender identity: male What is your relationship status?: Panel score (0-1 are the most socially isolated patients): 1 Seatbelt use: always Do you feel safe at home: Yes Do you feel safe in your relationship?: Yes Exam Const General: cooperative and no acute distress HENMT Head: normal to inspection Face and sinus: normal facial exam Eyes General: appearance normal, both eyes and all related structures EOM: EOM intact bilaterally Neck Neck: normal visual inspection and No submandibular swelling Lymphatic: no lymphadenopathy noted Chest Chest: normal inspection of the chest and no tenderness Resp Effort & Inspection: normal respiratory effort and able to speak in complete sentences Auscultation: clear to auscultation bilaterally Cardio Rate: regular rate Rhythm: regular rhythm GI Inspection: normal to inspection Palpation: soft, not firm, not rigid and nontender Auscultation: normal bowel sounds Skin General skin exam: no rashes or lesions noted Neuro General: patient alert, patient awake and patient oriented x3 Cognition: normal cognition Speech: speech normal Motor: muscle tone normal throughout Sensory Exam: no sensory deficits noted Extrem General: normal to inspection, full ROM, capillary refill normal, no calf tenderness bilaterally and no edema Psych Appearance: grossly normal Mental Status: mental status grossly normal Speech and Movement: speech and movement normal Affect: normal affect
[2021-01-15 15:43] LABS: Abs Immature Grans 0.02 10^3/uL (0.0-0.06); Absolute Basophil Count 0.05 10^3/uL (0.0-0.2); Absolute Eosinophil Count 0.42 10^3/uL (0.0-0.7); Absolute Lymphocyte Count 1.76 10^3/uL (1.2-3.4); Absolute Monocyte Count 0.65 10^3/uL (0.1-0.8); Absolute Neutrophil Count 4.77 10^3/uL (1.2-6.7); Basophils % 0.7; Eosinophils % 5.5; HCT 43.3 % (40.0-50.0); HGB 15.2 g/dL (13.5-17.5); Immature Grans % 0.3; Lymphocytes % 22.9; MCH 31.8 pg (27.0-33.0); MCHC 35.1 % (32.0-36.0); MCV 90.6 fL (80-95); MPV 10.3 fL (8.0-11.0); Monocytes % 8.5; Neutrophils % 62.1; Nucleated RBC 0 %; Platelet Count 218 10^3/uL (130-400); RBC 4.78 10^6/uL (4.36-5.78); RDW 12.3 % (11.8-14.1); RDW-SD 40.7 fL; WBC 7.67 10^3/uL (4.4-10.8)
--- NOTE | 2021-01-15 15:45 | DI.RAD_ITS ---
Exam(s) XR CHEST 2V PA LATERAL EXAM: XR CHEST 2V PA LATERAL CLINICAL HISTORY: palpitations, sob, r/o acute disease TECHNIQUE: 2D digital imaging was performed. COMPARISON: CR CHEST 2 VIEWS PA,LAT from 02/24/2012 FINDINGS: MEDIASTINUM: Normal. HEART: Normal. PULMONARY VASCULATURE: Normal. LUNGS: Clear. PLEURAL SPACE: No pleural effusion or pneumothorax. BONE:Normal. IMPRESSION: No acute pulmonary findings. DATA REPOSITORY: RADIATION DOSE DELIVERED:
[2021-01-15 15:57] LABS: ALT 49 U/L (16-63); AST 18 U/L (15-37); Albumin 4.4 g/dL (3.4-5.0); Alkaline Phosphatase 62 U/L (46-116); Anion Gap 11.3 mmol/L (3-11); BUN 32 mg/dL (7-18); Bilirubin, Total 0.8 mg/dL (0.2-1.0); CO2 28.7 mmol/L (21.0-32.0); CREATININE 1.2 mg/dL (0.70-1.30); Calcium 9.7 mg/dL (8.5-10.1); Chloride 103 mmol/L (98-107); Glucose 126 mg/dL (74-106); Magnesium 1.8 mg/dL (1.8-2.4); Potassium 3.4 mmol/L (3.5-5.1); Sodium 143 mmol/L (136-145); Total Protein 7.6 g/dL (6.4-8.2)
[2021-01-15 16:06] LABS: Troponin I < 0.05 ng/mL (<0.06)
[2021-01-15] MEDS: Normal Saline 1,000 ML 1000 ML IV (16:06)
--- NOTE | 2021-01-15 16:27 | DI.VRAD_ITS ---
PROCEDURE INFORMATION: Exam: XR Chest Exam date and time: 01/15/2021 3:51 PM Age: 70 years old Clinical indication: Other: Palpitations, SOB, rule out acute disease TECHNIQUE: Imaging protocol: XR of the chest. Views: 2 views. COMPARISON: No relevant prior studies available. FINDINGS: Lungs: Hyperinflation, without acute airspace disease. Pleural spaces: No pleural effusion. Heart/Mediastinum: Epicardial fat, without cardiomegaly. Bones/joints: Mild degenerative change. IMPRESSION: Hyperinflation, without acute airspace disease. Dictated and Authenticated by: Patrice Haider MD. Ordering:JANETH Moreno MD
[2021-01-15 16:39] LABS: NT-proBNP 61 pg/mL (<300)
--- NOTE | 2021-01-15 16:45 | RT.EKG_ITS ---
APPROVED REPORT Exam: Resting ECG Reason for Exam: palpitations Patient Location: E HR:47 bpm ECG Measurements Heart Rate 47 AXIS NE [id number] P -14 QRSd 88 QRS 12 QT 425 T 144 QTc 436 Conclusion Sinus rhythm...normal P axis, V-rate 60- 99 Atrial premature complex...SV complex w/ short R-R interval 2nd degree Mobitz I. No STEMI. I have reviewed and interpreted ECG and agree with software generated interpretation.
[2021-01-15 16:49] LABS: D-Dimer 194 ng/mlFEU (<500)
[2021-01-15] MEDS: Potassium Chloride 20 MEQ TABCR PO ×2 (17:05→19:21)
[2021-01-15 19:01] LABS: Troponin I < 0.05 ng/mL (<0.06)
[2021-01-15 19:56] LABS: TSH (W/Ref FT4) 2.76 uIU/mL (0.36-3.74)
[2021-01-17 11:38] LABS: Lyme Ab w Rflx to Lyme Confirm Negative (Negative)
[2021-01-18 00:01] LABS: Anaplasma phagocytophilum Negative (Negative); B. miyamotoi PCR Negative (Negative); Babesia divergens/MO-1 Negative (Negative); Babesia duncani Negative (Negative); Babesia microti Negative (Negative); Ehrlichia chaffeensis Negative (Negative); Ehrlichia ewingii/canis Negative (Negative); Ehrlichia muris eauclairensis Negative (Negative)
--- NOTE | 2021-02-17 13:25 | PDOC.ERCMACT ---
- If Service Date Differs Date of service: 02/17/21 Time of Service: 13:25 Care Management Activity Note Ishan is seen in the ED for palpitations. His PCP, Aleta Barone, is asked to place an order for an electrophysiological (EP) study at [facility]. CM is notified that the PCP is unable to order the study. CM contacts the [facility] Cardiology Office to inquire if Dr. Branham might be able to place the order for the EP study, as he will be seeing Ishan for an appointment tomorrow, 02/18/21. CM will continue to follow.
== END 2021-01-15 20:02 | disposition home or self-care (01) ==
PROVIDERS: Emergency Provider Physician Assistant; PCP Family Medicine
DX: R00.2 Palpitations (principal); I44.1 Atrioventricular block, second degree
CPT/HCPCS: 36415; 80053; 87798; 93005; 96360; 99284; 71046; 83735; 83880; 84443; 84484; 85025; 85379; 86618; 93010; 93225

== ENCOUNTER 2021-01-15 17:13 | Outpatient (RCR) | payer MEDICARE, BC, SELFPAY ==
--- NOTE | 2021-01-15 17:15 | HOLTER_ITS ---
APPROVED REPORT Conclusion There is a 48-hour monitor ordered for indication of palpitations. The patient was in normal sinus rhythm for the majority of the recording with an average heart rate o f 61 bpm. There were no episodes of ventricular tachycardia and rare PVCs. There were no episodes of supraventricular tachycardia and occasional (2%) PACs. There was no evidence of atrial fibrillation, no pauses greater than 3 seconds and no evidence of hig h degree heart block. There was 1 patient triggered event associated with fluttering. During that time the patient was i n sinus bradycardia.
== END 2021-02-08 23:59 | disposition home or self-care (01) ==
LOC: RT 17:13
PROVIDERS: PCP Family Medicine; Visit Provider Family Medicine
DX: R00.2 Palpitations (principal)
CPT/HCPCS: 93227; 93225; 93226

== ENCOUNTER → 2021-02-18 09:18 | Outpatient (BNVA) | payer MEDICARE, BC, SELFPAY | PROVIDERS: PCP Family Medicine; Referring Provider Family Medicine; Visit Provider Internal Medicine Cardiovascular Disease | DX: I44.1 Atrioventricular block, second degree (principal); R00.2 Palpitations | CPT/HCPCS: 99214; 99213 ==

== ENCOUNTER 2021-10-30 10:27 | Outpatient (CLI) | payer MEDICARE, SELFPAY ==
--- NOTE | 2021-10-30 10:45 | RT.EKG_ITS ---
APPROVED REPORT Exam: Resting ECG Reason for Exam: roman HR Patient Location: O HR:33 bpm ECG Measurements Heart Rate 33 AXIS ID 305 P -9 QRSd 88 QRS 18 QT 480 T 80 QTc 356 Conclusion Sinus bradycardia...rate< 50 First degree and Mobitz 1 second-degree AV block Poor R wave progression
--- NOTE | 2021-12-22 11:36 | W.CARDEVENT ---
Date of service: 12/22/21 Time of Service: 11:37 Cardiac Event Recorder Referring Provider:: Alan Min Indications:: Palpitations Cardiac Event Note: This is a 14-day cardiac event monitor ordered for palpitations Predominant rhythm overall was sinus. Average heart rate was 44, minimum 23, maximum 114 There were multiple periods of 2-1 AV block. Some of these appear to be type I, others possibly type II. A total of 48 pauses were recorded. The majority of these occurred during sleeping hours, between 2 AM and 6 AM. They were due to ventricular standstill. The majority of the pauses were 3 to 3.5 seconds. The longest pause was 4.6 seconds. One 3.14-second pause occurred at 2:35 PM in the afternoon. These did not appear to be symptomatic A ventricular escape rhythm at a rate of 23 was documented at 2 AM 2-1 AV block was common, with rates 30 to 35 bpm There were no significant tachydysrhythmias Patient symptoms of rapid heartbeat corresponded to 2-1 AV block rate 29
== END 2021-10-30 10:28 | disposition home or self-care (01) ==
PROVIDERS: PCP Family Medicine; Referring Provider Family Medicine; Visit Provider Internal Medicine Cardiovascular Disease
DX: R00.1 Bradycardia, unspecified (principal); R00.2 Palpitations
CPT/HCPCS: 93010

== ENCOUNTER → 2021-10-30 10:27 | Outpatient (BNVA) | payer MEDICARE, SELFPAY | PROVIDERS: PCP Family Medicine; Referring Provider Family Medicine; Visit Provider Internal Medicine Cardiovascular Disease | DX: R00.2 Palpitations (principal); R00.1 Bradycardia, unspecified; I44.1 Atrioventricular block, second degree; I44.0 Atrioventricular block, first degree | CPT/HCPCS: 93005; 99214 ==

== ENCOUNTER 2021-11-17 01:54 | Outpatient (CLI) | payer MEDICARE, SELFPAY | END 2021-11-17 01:55 | disposition home or self-care (01) | LOC: RT 01:54 | PROVIDERS: PCP Family Medicine; Visit Provider Internal Medicine Cardiovascular Disease | DX: R00.2 Palpitations (principal); I44.1 Atrioventricular block, second degree; I44.0 Atrioventricular block, first degree | CPT/HCPCS: 93246 ==

== ENCOUNTER 2021-12-22 09:47 | Outpatient (CLI) | payer MEDICARE, SELFPAY ==
--- NOTE | 2021-12-22 09:45 | RT.EKG_ITS ---
APPROVED REPORT Exam: Resting ECG Reason for Exam: palpitations Patient Location: O HR:35 bpm ECG Measurements Heart Rate 35 AXIS TN 301 P 27 QRSd 87 QRS 12 QT 485 T 83 QTc 370 Conclusion Sinus rhythm at 70, 2-1 AV block
== END 2021-12-22 09:48 | disposition home or self-care (01) ==
LOC: DI.CARD 09:51
PROVIDERS: PCP Family Medicine; Visit Provider Internal Medicine Cardiovascular Disease
DX: I44.1 Atrioventricular block, second degree (principal); R00.2 Palpitations
CPT/HCPCS: 93010

== ENCOUNTER → 2021-12-22 10:17 | Outpatient (BNVA) | payer MEDICARE, SELFPAY ==
--- NOTE | 2021-12-29 08:46 | W.ZIOMONITOR ---
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 ? Patient was in normal sinus rhythm for the majority of the recording with an average heart rate of 44 bpm. Second-degree heart block as well as 2-1 conduction was noted. ? There were rare PACs as well as rare PVCs. ? There was 1 brief episode of SVT lasting a total of 3 beats. ? There were 48 pauses greater than 3 seconds with the longest lasting 4.6 seconds. During this pause there was evidence of third-degree AV domenica block. ? There were no episodes of atrial fibrillation nor any episodes of ventricular tachycardia. ?There were two patient recorded events described as fast heart rate, fatigue. These were associated with 2-1 conduction
== END ==
PROVIDERS: PCP Family Medicine; Visit Provider Internal Medicine Cardiovascular Disease
DX: I44.1 Atrioventricular block, second degree (principal); I44.39 Other atrioventricular block; R00.2 Palpitations
CPT/HCPCS: 93005; 99214; 99213

== ENCOUNTER 2021-12-22 11:37 | Outpatient (CLI) | payer MEDICARE, SELFPAY | END 2021-12-22 11:38 | LOC: CARDO 01-26 12:19 | PROVIDERS: PCP Family Medicine; Referring Provider Family Medicine; Visit Provider Internal Medicine Cardiovascular Disease | DX: R00.2 Palpitations (principal); I44.1 Atrioventricular block, second degree; I44.0 Atrioventricular block, first degree | CPT/HCPCS: 93248 ==

== ENCOUNTER 2022-01-02 16:37 | Outpatient (REF) | payer MEDICARE, SELFPAY | END 2022-01-02 16:38 | disposition home or self-care (01) | LOC: NCHCN 16:37 | PROVIDERS: PCP Family Medicine; Visit Provider Family Medicine ==

== ENCOUNTER → 2022-08-24 09:46 | Outpatient (BNVA) | payer MEDICARE, SELFPAY | PROVIDERS: PCP Family Medicine; Referring Provider Family Medicine; Visit Provider Internal Medicine Cardiovascular Disease | DX: R00.2 Palpitations (principal); I44.1 Atrioventricular block, second degree | CPT/HCPCS: 99214 ==

== ENCOUNTER 2022-09-10 17:05 | Outpatient (REF) | payer MEDICARE, SELFPAY ==
[2022-09-10 21:11] LABS: Abs Immature Grans 0.01 10^3/uL (0.0-0.06); Absolute Basophil Count 0.04 10^3/uL (0.0-0.2); Absolute Eosinophil Count 0.47 10^3/uL (0.0-0.7); Absolute Lymphocyte Count 1.49 10^3/uL (1.2-3.4); Absolute Monocyte Count 0.59 10^3/uL (0.1-0.8); Absolute Neutrophil Count 3.65 10^3/uL (1.2-6.7); Basophils % 0.6; Eosinophils % 7.5; HCT 38.7 % (40.0-50.0); HGB 13.6 g/dL (13.5-17.5); Immature Grans % 0.2; Lymphocytes % 23.8; MCH 32.9 pg (27.0-33.0); MCHC 35.1 % (32.0-36.0); MCV 94 fL (80-95); Monocytes % 9.4; Neutrophils % 58.5; Platelet Count 200 10^3/uL (130-400); RBC 4.14 10^6/uL (4.36-5.78); RDW-SD 44.6 fL; WBC 6.25 10^3/uL (4.4-10.8)
[2022-09-10 21:17] LABS: Anion Gap 7.7 mmol/L (3-11); BUN 36 mg/dL (7-18); CO2 27.3 mmol/L (21.0-32.0); CREATININE 0.9 mg/dL (0.70-1.30); Calcium 9.2 mg/dL (8.5-10.1); Chloride 111 mmol/L (98-107); Estimated GFR 91.31 (mL/min/1.73m2); Glucose 161 mg/dL (74-106); Sodium 146 mmol/L (136-145)
[2022-09-10 21:19] LABS: ESR < 1 mm/hr (0-20)
== END 2022-09-10 17:06 | disposition home or self-care (01) ==
LOC: NCHCN 17:05
PROVIDERS: PCP Family Medicine; Visit Provider Family Medicine
DX: R20.2 Paresthesia of skin (principal); M79.18 Myalgia, other site; I10 Essential (primary) hypertension; R73.03 Prediabetes
CPT/HCPCS: 80048; 85652; 85025

== ENCOUNTER → 2023-02-23 09:15 | Outpatient (BNVA) | payer MEDICARE, SELFPAY | PROVIDERS: PCP Family Medicine; Referring Provider Family Medicine; Visit Provider Internal Medicine Cardiovascular Disease | DX: Z95.0 Presence of cardiac pacemaker (principal); I10 Essential (primary) hypertension; I44.1 Atrioventricular block, second degree; R00.2 Palpitations | CPT/HCPCS: 99214 ==

== ENCOUNTER 2023-05-25 08:42 | Outpatient (CLI) | payer MEDICARE, SELFPAY ==
--- NOTE | 2023-05-25 08:30 | RT.EKG_ITS ---
APPROVED REPORT Exam: Resting ECG Reason for Exam: palpitations Patient Location: O HR:53 bpm ECG Measurements Heart Rate [address] [id number] P [id number] QRSd 147 QRS -23 QT 472 T 111 QTc 444 Conclusion Atrial and ventricular paced rhythm
== END 2023-05-25 08:43 | disposition home or self-care (01) ==
LOC: DI.CARD 08:43
PROVIDERS: PCP Family Medicine; Visit Provider Internal Medicine Cardiovascular Disease
DX: R00.2 Palpitations (principal)
CPT/HCPCS: 93010

== ENCOUNTER → 2023-05-25 10:48 | Outpatient (BNVA) | payer MEDICARE, SELFPAY | PROVIDERS: PCP Family Medicine; Referring Provider Family Medicine; Visit Provider Internal Medicine Cardiovascular Disease | DX: Z95.0 Presence of cardiac pacemaker (principal); R00.2 Palpitations | CPT/HCPCS: 93005; 99213 ==

== ENCOUNTER 2023-06-23 06:54 | Emergency (ER) | payer MEDICARE, SELFPAY ==
[2023-06-23 06:59] VITALS: BP 217/82; PULSE 59; RESP 15; TEMP 36.6; O2SAT 100
[2023-06-23 07:02] VITALS: BP 217/82; PULSE 59; RESP 15; TEMP 36.6; O2SAT 100
--- NOTE | 2023-06-23 07:36 | ED.GENADUL_ITS ---
Discharge Plan Disposition Patient Disposition: Home Condition: Stable Discharge Details Clinical Impression: Pain, dental Primary Care Provider: Aleta Barone ED Provider: Erika Martinez Home Meds and New Rx's Prescriptions: New oxycodone-acetaminophen [Percocet] 5-325 mg tablet 1 tab PO Q6H PRNQty: 14 0RF No Action losartan 100 mg tablet 100 mg PO DAILY hydrochlorothiazide 25 mg tablet 25 mg PO DAILY metoprolol succinate 50 mg tablet extended release 24 hr 50 mg PO DAILY Qty: 90 3RF fluticasone propionate [Flovent Diskus] 50 MCG blister with device 50 mcg Inhalation BID Patient Comments: 03/15/14 Pt states using PRN. PG atorvastatin 20 mg tablet 20 mg PO DAILY Qty: 90 3RF omeprazole 20 mg capsule,delayed release(DR/EC) 20 mg PO DAILY zolpidem [Ambien] 10 mg tablet 10 mg PO ONCE PRN (Reason: insomnia) albuterol sulfate [ProAir HFA] 90 mcg/actuation HFA aerosol inhaler 2 inh inhalation Q4H PRN ibuprofen 200 mg capsule 400 mg PO PRN PRN amoxicillin 500 mg capsule 500 mg PO Q8H Discharge Instructions Instructions: Toothache (ED) Additional Instructions: Follow-up with dentist as planned. Discharge Data Discharge Physician: Erika Martinez Medical Decision Making Patient may have uncomplicated dental abscess. He started antibiotics for this yesterday. He continues to have pain. Will prescribe pain medication. He will keep his follow-up with the dentist tomorrow. We discussed that it is possible he is having nerve pain and it is not secondary to an infection. No evidence of deep space infection. Will discharge home on antibiotics and pain medication. Follow up with dentist NEFTALY. Return to ED for worsening facial swelling, high fevers, difficulty swallowing, difficulty breathing. HPI General Date/Time Provider Initiated Documentation: 06/23/23 07:19 . HPI Narrative: 73-year-old male presents for evaluation of dental pain. Patient states that beginning in June he had stage I of a root canal. Afterwards he developed pain and an infection. He was placed on clindamycin. He states that the infection improved but did not resolve. He again started having more pain early this week. He is due to see the dentist again tomorrow. He called and spoke with them and was started on amoxicillin yesterday. He states he continues to have discomfort which radiates up into his ear. He does not chew on that side. Denies any fevers or chills. No difficulty swallowing. He has been taking ibuprofen without any relief. He is having difficulty sleeping. Related Data Home Medications Medication Instructions Recorded Confirmed Flovent Diskus 50 mcg/actuation 50 mcg inhalation BID 01/18/13 06/23/23 powder for inhalation (fluticasone propionate) atorvastatin 20 mg tablet 20 mg PO DAILY #90 tabs 05/28/20 06/23/23 omeprazole 20 mg capsule,delayed 20 mg PO DAILY 07/04/20 06/23/23 release zolpidem 10 mg tablet (Ambien) 10 mg PO ONCE PRN insomnia 07/04/20 06/23/23 ibuprofen 200 mg capsule 400 mg PO PRN PRN 08/27/20 06/23/23 albuterol sulfate 90 mcg/actuation 2 inh inhalation Q4H PRN 10/15/21 06/23/23 aerosol inhaler (ProAir HFA) losartan 100 mg tablet 100 mg PO DAILY 08/24/22 06/23/23 hydrochlorothiazide 25 mg tablet 25 mg PO DAILY 02/23/23 06/23/23 metoprolol succinate 50 mg 50 mg PO DAILY #90 tabs 02/23/23 06/23/23 tablet,extended release 24 hr amoxicillin 500 mg capsule 500 mg PO Q8H 06/23/23 06/23/23 oxycodone-acetaminophen 5 mg-325 1 tab PO Q6H PRN #14 tabs 06/23/23 mg tablet (Percocet) Previous Rx's Medication Instructions Recorded atorvastatin 20 mg tablet 20 mg PO DAILY #90 tabs 05/28/20 metoprolol succinate 50 mg 50 mg PO DAILY #90 tabs 02/23/23 tablet,extended release 24 hr oxycodone-acetaminophen 5 mg-325 1 tab PO Q6H PRN #14 tabs 06/23/23 mg tablet (Percocet) Allergies Allergy/AdvReac Type Severity Reaction Status Date / Time SOLANGE Inhibitors AdvReac Mild Verified 06/23/23 07:03 lisinopril AdvReac Mild Visual Verified 06/23/23 07:03 Disturbance General Stated Complaint: DentalOral FARHAN: 4 Review of Systems Narrative: Remainder of review of systems otherwise negative except as noted in the HPI x 5. PFSH All Active Problems Pain, dental (Acute) Paroxysmal atrial fibrillation (Acute) Pacemaker (Acute) Seasonal allergies (Acute) Asthma, intermittent (Acute) Renal insufficiency (Chronic) [place]'s disease (Acute) Lipoma (Acute) Leg pain, bilateral (Acute) Hyperlipidemia (Acute) Insomnia (Acute) Prediabetes (Acute) Neck pain (Acute) Hearing loss, bilateral (Acute) Pain, joint, ankle, left (Acute) Pain, joint, shoulder, left (Acute) High-grade atrioventricular block (Acute) Palpitations (Acute) Second degree AV block, Mobitz type I (Acute) 01/09/22 [place] [employer] dual chamber pacemaker ([employer] MRI DR IS-1 Model #[id number] serial #[id number] Palpitations (Acute) Carpal tunnel syndrome of right wrist (Acute) Posterior tibialis tendon insufficiency (Acute) Injection: 04/23/2020; 12/05/19 BPH w urinary obs/LUTS (Chronic) Erectile dysfunction due to arterial insufficiency (Chronic) Polyneuropathy (Acute 10/10/13) Medical History Hx of skin cancer, basal cell Tobacco consumption Asthma Atrioventricular block, first degree Barretts esophagus Chronic low back pain Hypertension Claudication Social History Smoking/Tobacco Use Status: Former Tobacco Use Quit Date: 07/12/87 Pack-years: 17 Tobacco: How many years used: 17 Smoking risk assessment performed?: Yes Alcohol Intake: current Alcohol Intake frequency: 0-2 drinks per day Drug use: Never Substance use type: does not use Household members: spouse and children Housing: house Number of Children: 3 current occupation: retired musician Pets and animals: Yes Current gender identity: male What is your relationship status?: Panel score (0-1 are the most socially isolated patients): 1 Seatbelt use: always Do you feel safe at home: Yes Do you feel safe in your relationship?: Yes Exam Narrative Exam Narrative: General: non-toxic, no respiratory distress, comfortable HEENT: normocephalic, atraumatic, lids and lashes normal, PERRL, EOMI, anicteric sclera, no conjunctival injection, moist oral mucosa, no erythema, tenderness to palpation over right posterior lower tooth, no palpable area of fluctuance, no visible abscess, no hoarseness, stridor or drooling, no trismus. Patient is maintaining own secretions just fine. Uvula is midline, no peritonsilar abscess. Musculoskeletal: full range of motion of arms and legs, no tenderness to palpation. no clubbing, cyanosis, or edema Neurologic: appropriate for age, strength normal Psych: alert and oriented Skin: no petechiae, no lesions, warm and dry Course Vital Signs Vital signs: Vital Signs Temperature 36.6 C 06/23/23 06:59 Pulse 59 L 06/23/23 06:59 Respiratory Rate 15 06/23/23 06:59 Blood Pressure 217/82 H 06/23/23 06:59 Pulse Oximetry 100 06/23/23 06:59 Temperature 36.6 C 06/23/23 07:02 Temperature Source Temporal Artery Scan 06/23/23 07:02 Pulse 59 L 06/23/23 07:02 Respiratory Rate 15 06/23/23 07:02 Respiratory Effort Normal 06/23/23 07:01 Blood Pressure 217/82 H 06/23/23 07:02 Blood Pressure Position Sitting 06/23/23 07:02 Pulse Oximetry 100 06/23/23 07:02 Oxygen Delivery Method Room Air 06/23/23 07:02 Oxygen Flow Rate 0 06/23/23 07:02 Pain Level 8 06/23/23 07:02 PAWSS Have you Been Recently Intoxicated or Drunk Within the Last 30 days?: No Have you Ever Experienced Previous Episodes of Alcohol Withdrawal?: No Have you ever Experienced Withdrawal Seizures?: No Have you ever Experienced Delirium Tremens(DT)s?: No Have you ever undergone Alcohol Rehabilitation Treatment (i.e, inpt ot outpatient treatment programs)?: No Have you ever Experienced Blackouts?: No Have you ever Combined Alcohol with other Downers within the last 90 days?: No Have you ever Combined Alcohol with any other Substance of Abuse during the last 90 days?: No Result: 0
== END 2023-06-23 07:41 | disposition home or self-care (01) ==
PROVIDERS: Emergency Provider Emergency Medicine Emergency Medical Services; PCP Family Medicine
DX: R68.84 Jaw pain (principal); K08.89 Other specified disorders of teeth and supporting structures
CPT/HCPCS: 99283

== ENCOUNTER → 2023-08-24 09:10 | Outpatient (BNVA) | payer MEDICARE, SELFPAY | PROVIDERS: PCP Family Medicine; Referring Provider Family Medicine; Visit Provider Internal Medicine Cardiovascular Disease | DX: I48.0 Paroxysmal atrial fibrillation (principal); Z95.0 Presence of cardiac pacemaker; I44.1 Atrioventricular block, second degree; I10 Essential (primary) hypertension | CPT/HCPCS: 99213 ==

== ENCOUNTER 2023-11-29 17:16 | Outpatient (REF) | payer MEDICARE, SELFPAY ==
[2023-11-29 21:18] LABS: Abs Immature Grans 0.02 10^3/uL (0.0-0.06); Absolute Basophil Count 0.06 10^3/uL (0.0-0.2); Absolute Eosinophil Count 0.37 10^3/uL (0.0-0.7); Absolute Lymphocyte Count 1.82 10^3/uL (1.2-3.4); Absolute Neutrophil Count 3.75 10^3/uL (1.2-6.7); Basophils % 0.9 %; Eosinophils % 5.6 %; HCT 42.5 % (40.0-50.0); HGB 14.7 g/dL (13.5-17.5); Immature Grans % 0.3 %; Lymphocytes % 27.5 %; MCH 32.6 pg (27.0-33.0); MCHC 34.6 % (32.0-36.0); MCV 94 fL (80-95); MPV 10.6 fL (8.0-11.0); Monocytes % 9.1 %; Neutrophils % 56.6 %; Platelet Count 237 10^3/uL (130-400); RBC 4.51 10^6/uL (4.36-5.78); RDW 12.1 % (11.8-14.1); RDW-SD 41.9 fL; WBC 6.62 10^3/uL (4.4-10.8)
[2023-11-29 21:34] LABS: ALT 42 U/L (16-63); AST 16 U/L (15-37); Albumin 4.6 g/dL (3.4-5.0); Alkaline Phosphatase 69 U/L (46-116); Anion Gap 8.7 mmol/L (3-11); BUN 35 mg/dL (7-18); Bilirubin, Total 0.7 mg/dL (0.2-1.0); CO2 29.3 mmol/L (21.0-32.0); CREATININE 1.8 mg/dL (0.70-1.30); Calcium 10.4 mg/dL (8.5-10.1); Calculated LDL 47 mg/dL (<100); Chloride 104 mmol/L (98-107); Cholesterol 171 mg/dL (<200); Glucose 127 mg/dL (74-106); HDL Cholesterol 63 mg/dL (40-60); Hemoglobin A1C 5.8 % (<5.7); Potassium 4.3 mmol/L (3.5-5.1); Sodium 142 mmol/L (136-145); Total Protein 7.5 g/dL (6.4-8.2); Triglyceride 308 mg/dL (<150)
[2023-11-29 21:55] LABS: Vitamin D 25 Total 44.3 ng/mL (30-100)
== END 2023-11-29 17:17 | disposition home or self-care (01) ==
LOC: NCHCN 17:16
PROVIDERS: PCP Family Medicine; Visit Provider Family Medicine
DX: Z00.00 Encounter for general adult medical examination without abnormal findings (principal)
CPT/HCPCS: 80053; 80061; 82306; 83036; 85025

== ENCOUNTER 2023-11-30 13:07 | Outpatient (REF) | payer MEDICARE, SELFPAY ==
[2023-12-01 10:44] LABS: Campylobacter PCR Negative (Negative); Salmonella PCR Negative (Negative); Shiga Toxin PCR Negative (Negative); Shigella/Enteroinvasive Ecoli Negative (Negative)
== END 2023-11-30 13:08 | disposition home or self-care (01) ==
LOC: NCHCN 13:07
PROVIDERS: PCP Family Medicine; Visit Provider Family Medicine
DX: K52.9 Noninfective gastroenteritis and colitis, unspecified (principal)
CPT/HCPCS: 87505; 87177

== ENCOUNTER → 2024-02-16 01:51 | Outpatient (CLI) | payer MEDICARE, SELFPAY ==
--- NOTE | 2024-02-16 | DI.US_ITS ---
Exam(s) US RENAL EXAM: US RENAL CLINICAL HISTORY: Stage II chronic kidney disease, N81.30; prediabetes, R73.03; TECHNIQUE: Ultrasound of both kidneys performed using standard protocol. COMPARISON: US US ECHOCARDIOGRAM from 09/12/2020 FINDINGS: RIGHT KIDNEY: Measures 12.7 cm in length. No cysts evident. Normal cortical thickness and corticomedullary differen tiation .No solid masses No intrarenal calculi nor hydronephrosis. LEFT KIDNEY: Measures 12.7 cm in length. There is an exophytic cyst off the superior pole of the right kidney whi ch measures 4.7 x 4.2 x 3.9 cm. Normal cortical thickness and corticomedullary differentiaion. No s olids masses. No intrarenal calculi nor hydonephrosis. URINARY BLADDER: Prevoid volume is 281 cc Postvoid volume is 85 cc No evidence of bladder mass nor diverticuli. Ureterovesical jets: Both identified and appear symmetrical Prostate gland: Measures 2.6 x 2.9 x 3.3 cm volume of 13 0.3 mL IMPRESSION: 1. No significant ultrasound findings in the kidneys. There is a benign 4.7 cm cyst in superior dallin e of the left kidney. No solid renal masses. 2. No hydronephrosis. No evidence of nephrolithiasis. DATA REPOSITORY:
== END ==
PROVIDERS: PCP Family Medicine; Visit Provider Nurse Practitioner Family
DX: R73.03 Prediabetes (principal); N18.2 Chronic kidney disease, stage 2 (mild); N28.1 Cyst of kidney, acquired
CPT/HCPCS: 76770

== ENCOUNTER → 2024-03-06 11:15 | Outpatient (BNVA) | payer MEDICARE, SELFPAY | PROVIDERS: PCP Family Medicine; Visit Provider Internal Medicine Cardiovascular Disease | DX: I48.0 Paroxysmal atrial fibrillation (principal); I44.1 Atrioventricular block, second degree; Z95.0 Presence of cardiac pacemaker | CPT/HCPCS: 99213 ==

== ENCOUNTER → 2024-04-12 13:53 | Outpatient (BNVA) | payer MEDICARE, SELFPAY | PROVIDERS: PCP Family Medicine; Referring Provider Family Medicine; Visit Provider Internal Medicine Cardiovascular Disease | DX: Z95.810 Presence of automatic (implantable) cardiac defibrillator (principal) | CPT/HCPCS: 93280 ==

== ENCOUNTER → 2024-06-29 12:57 | Outpatient (BNVA) | payer MEDICARE, SELFPAY | PROVIDERS: PCP Family Medicine; Referring Provider Family Medicine; Visit Provider Surgery | DX: K22.70 Barrett's esophagus without dysplasia (principal); R19.7 Diarrhea, unspecified | CPT/HCPCS: 99214 ==

== ENCOUNTER 2024-08-09 11:34 | Outpatient (REF) | payer MEDICARE, SELFPAY ==
[2024-08-09 15:40] LABS: ALT 46 U/L (16-63); AST 22 U/L (15-37); Albumin 4.3 g/dL (3.4-5.0); Alkaline Phosphatase 72 U/L (46-116); Anion Gap 7.5 mmol/L (3-11); BUN 22 mg/dL (7-18); Bilirubin, Total 0.96 mg/dL (0.2-1.0); CO2 29.5 mmol/L (21.0-32.0); CREATININE 1.1 mg/dL (0.70-1.30); Calcium 9.6 mg/dL (8.5-10.1); Chloride 106 mmol/L (98-107); Estimated GFR 70.88 (mL/min/1.73m2); Glucose 147 mg/dL (74-106); Potassium 4.8 mmol/L (3.5-5.1); Sodium 143 mmol/L (136-145)
== END 2024-08-09 11:35 | disposition home or self-care (01) ==
LOC: NCHCN 11:34
PROVIDERS: PCP Family Medicine; Visit Provider Family Medicine
DX: N18.9 Chronic kidney disease, unspecified (principal)
CPT/HCPCS: 80053

== ENCOUNTER → 2024-08-24 13:23 | Outpatient (BNVA) | payer MEDICARE, SELFPAY | PROVIDERS: PCP Family Medicine; Referring Provider Family Medicine; Visit Provider Physical Therapy Assistant | DX: Z12.11 Encounter for screening for malignant neoplasm of colon (principal); I10 Essential (primary) hypertension ==

== ENCOUNTER 2024-09-04 09:49 | Day surgery (SDC) | payer MEDICARE, SELFPAY ==
[2024-09-04 09:55] VITALS: BP 161/90; PULSE 86; RESP 16; TEMP 36.2; O2SAT 98
[2024-09-04] MEDS: Lactated Ringers 1,000 ML 80 ML IV (10:50)
--- NOTE | 2024-09-04 11:13 | ANES.PREOP_ITS ---
General Info Date of Service Date Performed: 09/04/24 Height: 5 ft 6.25 in Weight: 78.1 kg Body Mass Index (BMI): 27.6 Surgical Procedure: Operation Date: 09/04/24 11:20 Proposed Procedure Side Surgeon p Colonoscopy/Gastroscopy Noe Chi MD Meds Allergies and Home Medications Allergies Allergy/AdvReac Type Severity Reaction Status Date / Time lisinopril AdvReac Mild Visual Verified 09/04/24 10:21 Disturbance SOLANGE Inhibitors AdvReac Unknown Unknown Verified 09/04/24 10:21 Home Medication ?Medication ?Instructions ?Recorded atorvastatin 20 mg tablet 20 mg PO DAILY #90 tabs 05/28/20 omeprazole 20 mg capsule,delayed 20 mg PO DAILY 07/04/20 release zolpidem 10 mg tablet (Ambien) 10 mg PO ONCE PRN insomnia 07/04/20 ibuprofen 200 mg capsule 400 mg PO PRN PRN 08/27/20 albuterol sulfate 90 mcg/actuation 2 inh inhalation Q4H PRN 10/15/21 aerosol inhaler (ProAir HFA) apixaban 5 mg tablet 5 mg PO BID #180 tabs 11/30/23 fluticasone furoate 100 1 inh inhalation DAILY 06/22/24 mcg/actuation blister powder for inhalation (Arnuity Ellipta) losartan 100 1 tab PO DAILY 06/22/24 mg-hydrochlorothiazide 25 mg tablet multivitamin 1 tab PO DAILY 06/29/24 bisacodyl 5 mg tablet,delayed 5 mg PO ONCE #4 tabs 08/24/24 release (Dulcolax (bisacodyl)) polyethylene glycol 3350 17 17 g PO ONCE #238 grams 08/24/24 gram/dose oral powder metoprolol succinate 50 mg 50 mg PO HS 08/31/24 tablet,extended release 24 hr Current Visit Medications: Current Medications Generic Name Dose Route Start Last Admin Trade Name Freq PRN Reason Stop Dose Admin Ringer's Solution 1,000 mls @ 80 mls/hr 09/04/24 06:00 09/04/24 10:50 IV 09/04/24 23:59 80 mls/hr INFUSION OG Administration IV Miscellaneous Supplies 1 each 09/04/24 06:00 Iv Access IV 09/04/24 23:59 DIRECTED OG Sodium Chloride 0 ml 09/04/24 06:00 Normal Saline Flush 10 Ml Syr IV 09/04/24 23:59 PRN PRN Sodium Chloride 0 ml 09/04/24 06:00 Normal Saline 10 Ml Vial IJ 09/04/24 23:59 DIRECTED PRN Sterile Water 0 ml 09/04/24 06:00 Water,Injection,Sterile 10 Ml Vial IJ 09/04/24 23:59 DIRECTED PRN PFSH Active Problems Active Problems: Problem Status Onset Code Former smoker Acute Z87.891 Paroxysmal atrial fibrillation Acute I48.0 Pacemaker Acute Z95.0 Seasonal allergies Acute J30.2 Asthma, intermittent Acute J45.20 Renal insufficiency Chronic N28.9 [place]'s disease Acute L11.1 Lipoma Acute D17.9 Leg pain, bilateral Acute M79.604, M79.605 Hyperlipidemia Acute E78.5 Insomnia Acute G47.00 Prediabetes Acute R73.03 Neck pain Acute M54.2 Hearing loss, bilateral Acute H91.93 Pain, joint, ankle, left Acute M25.572 Pain, joint, shoulder, left Acute M25.512 High-grade atrioventricular block Acute I44.39 Palpitations Acute R00.2 Second degree AV block, Mobitz type I Acute I44.1 Palpitations Acute R00.2 Carpal tunnel syndrome of right wrist Acute G56.01 Posterior tibialis tendon insufficiency Acute M76.829 BPH w urinary obs/LUTS Chronic N40.1, N13.8 Erectile dysfunction due to arterial insufficiency Chronic N52.01 Polyneuropathy Acute 10/10/13 G62.9 Medical History Medical History Hx of skin cancer, basal cell Tobacco consumption Asthma Atrioventricular block, first degree Barretts esophagus Chronic low back pain Hypertension Claudication Tobacco Smoking/Tobacco Use Status: Former Tobacco Use Alcohol Alcohol Intake: current Alcohol intake frequency: 0-2 drinks per day Substance Use Substance use: Never Substance use type: does not use Vital Signs and Lab Results Vital Signs Most Recent Vital Signs in EMR: Most Recent Vital Signs Temp Pulse Resp BP Pulse Ox 36.2 C L 86 16 161/90 H 98 09/04/24 09:55 09/04/24 09:55 09/04/24 09:55 09/04/24 09:55 09/04/24 09:55 Lab Results Blood Type / Crossmatch: No Data to Display Complete Blood Count: No Data to Display Complete Metabolic Panel: Sodium 143 mmol/L (136-145) 08/09/24 09:45 Potassium 4.8 mmol/L (3.5-5.1) 08/09/24 09:45 Chloride 106 mmol/L (98-107) 08/09/24 09:45 Carbon Dioxide 29.5 mmol/L (21.0-32.0) 08/09/24 09:45 BUN 22 mg/dL (7-18) H 08/09/24 09:45 Creatinine 1.1 mg/dL (0.70-1.30) 08/09/24 09:45 Est GFR (CKD-EPI 2020) 70.88 (mL/min/1.73m2) 08/09/24 09:45 Calcium 9.6 mg/dL (8.5-10.1) 08/09/24 09:45 Albumin 4.3 g/dL (3.4-5.0) 08/09/24 09:45 Glucose 147 mg/dL (74-106) H 08/09/24 09:45 Liver Function Panel: Alanine Aminotransferase (ALT/SGPT) 46 U/L (16-63) 08/09/24 09: 45 Aspartate Amino Transf (AST/SGOT) 22 U/L (15-37) 08/09/24 09:45 Coagulation Panel: No Data to Display Cardiac Panel: No Data to Display Arterial Blood Gas: No Data to Display Venous Blood Gas: No Data to Display Pancreas Panel: No Data to Display Thyroid Panel: No Data to Display Infectious Disease: No Data to Display Blood Cultures: No Data to Display Toxicology Panel: No Data to Display Anesthesia Assessment and Plan Anesthesia History Personal History: No History of Anesthesia Complications Family History: No Family History of Anesthesia Complications Exercise Tolerance Exercise Tolerance: Metabolic Equivalents>4 Pertinent Negatives Pertinent Negatives: No Symptoms of GERD Cardiac & Pulmonary Exam Cardiac Exam: Normal S1/S2 Heart Sounds Pulmonary Exam: Clear Bilateral Breath Sounds Implantable Cardiac Device Does patient have a Pacemaker or an ICD?: Yes Device Loop Tender:: Appolicious Reason for Placement:: 2nd AV Block Date of Last Device Interrogation:: 04/12/24 Airway Exam Known Difficult Airway: No Mallampati Class: 2 Mouth Opening: Normal (> 3cm) Thyromental Distance: Greater than 3 cm Facial Hair: Full Bui Neck Range of Motion: Full ROM Neck Circumference: Thick Teeth Condition: Normal Dentition ASA Classification ASA Score: ASA 3 Emergency Case?: No NPO Status NPO Status: NPO Clears >2 hours, Solids >8 hours Anesthesia Plan Resuscitation Status: Full Code Anesthesia Technique: General Anesthesia Airway Planned: Natural Airway Monitors Used: Standard Monitors
[2024-09-04 11:14] VITALS: BMI 27.6
--- NOTE | 2024-09-04 11:34 | BOWEL_PTH ---
PATIENT: Ishan Lucero LOC: [facility] U#:[id number] AGE/SX: 74/M ROOM: RE09/04/[address]: Noe Chi : 1950 BED: DIS: 09/04/2024 SPEC #: [id number] RECD: 09/04/24 13:27 STATUS: KAITLIN REQ #: [id number] ANASTACIO: 09/04/24 11:[address]: Noe Chi DEPT: Surgical Specimen RECD BY: Elham Quiles ENTERED: 09/04/24 13:29 SP TYPE: Bowel OTHR DR: Aleta Barone Tissues: 1 - ESOPHAGUS BIOPSY 2 - BIOPSY BOWEL 3 - BIOPSY BOWEL 4 - BIOPSY BOWEL 5 - BIOPSY BOWEL Procedures: GROSS AND MICRO LEVEL 4 Comments: [id number]
--- NOTE | 2024-09-04 12:01 | W.COLOREPORT ---
Date of service: 09/04/24 Time of Service: 12:01 Colonoscopy Report Procedure Description: PROCEDURES PERFORMED: 1. Colonoscopy with cold forceps polypectomy x2 2. Cold forceps biopsies PREOPERATIVE DIAGNOSIS: Surveillance colonoscopy POSTOPERATIVE DIAGNOSIS: Mild diverticulosis, colon polyps, grade 1 internal hemorrhoids SURGEON: Ginger Chi MD INDICATION for procedure: The patient is a 74-year-old man due for a surveillance colonoscopy. He has no family history of colon cancer. He does complain of frequent and chronic loose stools and has been seeing gastroenterology because of this. FINDINGS: Normal terminal ileum. I took cold forceps biopsies here to rule out IBD though none is suspected. In the ascending colon a small 2 to 3 mm sessile polyp was removed with cold forceps technique. Further along in the transverse colon another 2-3 mm sessile polyp was removed with cold forceps technique. The mucosa of the colon looked normal visually but I took random/nontargeted biopsies throughout to rule out microscopic colitis. In the sigmoid colon only is a few, tiny, isolated diverticuli. There is no fibrosis, inflammation or stricture in this area. Certainly nothing that would be causing his clinical symptoms/complaints. Grade 1 internal hemorrhoids noted on retroflexion. SURVEILLANCE interval/FOLLOW-UP: 3 - 10 years. If sessile serrated or villous histology, then in 3 years. Otherwise, 7-10 year followup is acceptable. He will continue to follow-up with GI in regards to his bowel habit complaints/symptoms. SPECIMENS: yes EBL: Minimal COMPLICATIONS: None QUALITY of prep: Excellent Procedure in detail: The patient gave written consent and was in agreement with the indications, the potential risks as well as the benefits of the procedure. He was turned from upper endoscopy (see separate procedure note) and kept in the same position and anesthesia was continued. I started the colonoscopy portion of the procedure. Digital rectal and visual examination was performed -some mild, benign?appearing skin tags are noted. A well-lubricated flexible colonoscope was then introduced and passed without any notable difficulty all the way to the cecum identified by the ileocecal valve and the appendiceal orifice. The terminal ileum was intubated and looked normal. The scope was then slowly withdrawn with the above-noted findings. The patient tolerated the procedure well and was taken to the PACU in hemodynamically stable condition.
[2024-09-04 12:04] VITALS: BP 122/67; PULSE 63; RESP 17; TEMP 36.5; O2SAT 96
--- NOTE | 2024-09-04 12:05 | W.PM.ENDDOP ---
Date of service: 09/04/24 Time of Service: 12:06 Endoscopy Report PROCEDURE DESCRIPTION: PROCEDURES PERFORMED: 1. EGD with biopsies PREOPERATIVE DIAGNOSIS: Burr's esophagus POSTOPERATIVE DIAGNOSIS: Moderate(2-3cm) type I hiatal hernia (Hill Grade 2) SURGEON: Ginger Chi MD INDICATION FOR PROCEDURE: 74-year-old man who reportedly has Burr's esophagus history and was referred for EGD surveillance of this. He does not have any significant clinical symptoms or complaints. FINDINGS: D2/D3 = normal D1/bulb = normal Pylorus = normal Antrum = normal appearance, no ulcers or inflammation or anything concerning Body = normal appearance Fundus = normal, no polyps Cardia = normal Hiatus = Hill grade 2 hiatal defect and a small?moderate sliding hiatal hernia is visible Distal esophagus = no inflammation, no esophagitis, no Burr's, no obvious stricture. The hiatal hernia is a sliding type I that slides approximately 2-3 cm. I took cold forceps biopsies of the distal esophagus because of the history but there is no visible segments that look like Burr's. Mid esophagus = normal Proximal esophagus/hypopharynx/vocal cords = normal SURVEILLANCE-INTERVAL/FOLLOW-UP: As needed follow-up with PCP and/your GI doctors, no surveillance necessary. Specimens: Yes EBL: Minimal COMPLICATIONS: None Procedure in detail: The patient gave written consent and was in agreement with the indications, the potential risks as well as the benefits of the procedure. The patient was taken to the endoscopy suite and laid on his left side. Anesthesia was given which was tolerated well. We performed a timeout and when we were in agreement I started the procedure. A well-lubricated endoscope was gently and carefully advanced down the esophagus, into the stomach the scope was and through the pylorus into the duodenum. The scope was then slowly withdrawn with the above-noted findings/interventions. The patient tolerated the procedure well and was then turned for colonoscopy (see separate procedure note).
--- NOTE | 2024-09-04 12:18 | PDOC.DSDIS_ITS ---
Date of service: 09/04/24 Discharge Plan Disposition Patient Disposition: Home Condition: Good Discharge Details Attending Provider: Noe Chi Primary Care Provider: Aleta Barone Home Meds and New Rx's Prescriptions: No Action multivitamin Tablet 1 tab PO DAILY bisacodyl [Dulcolax (bisacodyl)] 5 mg tablet,delayed release (DR/EC) 5 mg PO ONCE Qty: 4 0RF Rx Instructions: Take per colonoscopy instructions provided by ordering providers office polyethylene glycol 3350 17 gram/dose powder 17 g PO ONCE Qty: 238 0RF Rx Instructions: Take per colonoscopy instructions provided by ordering providers office atorvastatin 20 mg tablet 20 mg PO DAILY Qty: 90 3RF omeprazole 20 mg capsule,delayed release(DR/EC) 20 mg PO DAILY zolpidem [Ambien] 10 mg tablet 10 mg PO ONCE PRN (Reason: insomnia) albuterol sulfate [ProAir HFA] 90 mcg/actuation HFA aerosol inhaler 2 inh inhalation Q4H PRN apixaban 5 mg tablet 5 mg PO BID Qty: 180 3RF losartan-hydrochlorothiazide 100-25 mg tablet 1 tab PO DAILY Arnuity Ellipta 100 mcg/actuation blister with device 1 inh inhalation DAILY ibuprofen 200 mg capsule 400 mg PO PRN PRN metoprolol succinate 50 mg tablet extended release 24 hr 50 mg PO HS Discharge Instructions Additional Instructions: FINDINGS: On the upper endoscopy you do not have any ongoing Burr's esophagus. It is very common that this can regress if you have been treating it adequately. You do have a medium?sized hiatal hernia which is probably the underlying reason for acid reflux and Burr's esophagus. This is a complicated scenario and does not necessarily require any intervention. 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 On the colonoscopy, a few small, non-concerning polyps were seen and removed. Nothing to worry about. Because of your chronic bowel habit issues that you have been seeing other doctors for, I took a bunch of biopsies throughout your colon and small intestine to ensure there is not a microscopic problem going on. You will get called with those results in a few weeks. Repeat another colonoscopy in probably 7-10 years. We will call you to confirm. Discharge Orders Discharge Orders: Discharge Order (Routine); Ordered 09/04/24 Ordered By: Noe Chi
--- NOTE | 2024-09-04 12:26 | W.ANESPOSTOP ---
Postoperative Evaluation Date, Time and Location Date Performed: 09/04/24 Time Performed: 12:26 Patient Location: Day Surgery Unit Vital Signs Most Recent Imported Vital Signs: Most Recent Vital Signs Temp Pulse Resp BP Pulse Ox 36.5 C 63 17 122/67 96 09/04/24 12:04 09/04/24 12:04 09/04/24 12:04 09/04/24 12:04 09/04/24 12:04 Assessment Mental Status: Awake (Alert & Oriented to Patient Baseline) Airway and Respiratory Function: Patent airway with normal (patient baseline) respiratory exam Cardiovascular Function: Hemodynamically Stable Hydration Status: Adequately Hydrated Nausea & Vomiting: No Nausea or Vomiting Pain: Pt. Denies Any Pain Peripheral Nerve Block: Patient did not receive a nerve block
[2024-09-04 12:44] VITALS: BP 151/63; PULSE 63; RESP 20; TEMP 36.5; O2SAT 99
== END 2024-09-04 13:28 | disposition home or self-care (01) ==
PROVIDERS: PCP Family Medicine; Visit Provider Student in an Organized Health Care Education/Training Program
PROC: (CPT 43239; principal; 2024-09-04 11:15)
DX: Z12.11 Encounter for screening for malignant neoplasm of colon (principal); K44.9 Diaphragmatic hernia without obstruction or gangrene; K57.30 Diverticulosis of large intestine without perforation or abscess without bleeding; D12.2 Benign neoplasm of ascending colon; K64.0 First degree hemorrhoids; D12.3 Benign neoplasm of transverse colon
CPT/HCPCS: 43239; 45380; 88305; J2704

== ENCOUNTER 2025-02-26 02:40 | Outpatient (CLI) | payer MEDICARE, SELFPAY ==
--- NOTE | 2025-02-26 | DI.US_ITS ---
Exam(s) US RENAL EXAM: US RENAL CLINICAL HISTORY: Lt renal cyst, N28.1-acquired cyst of kidney TECHNIQUE: Ultrasound of both kidneys performed using standard protocol. COMPARISON: US US RENAL from 02/16/2024 FINDINGS: RIGHT KIDNEY: Measures 11.8 cm in length. No cysts evident. Normal cortical thickness and corticomedullary differentiation .No solid masses No intrarenal calculi nor hydronephrosis. LEFT KIDNEY: Measures 12.5 cm in length. There is a 4.9 x 4.2 x 4.0 cm exophytic cyst off the superior pole of the left kidney again noted. There is a smaller 1.2 x 1.4 cm cyst near the lower pole of the left kidney. These benign cysts not require further workup. Normal cortical thickness and corticomedullary differentiaion. No solids masses. No intrarenal calculi nor hydonephrosis. URINARY BLADDER: Prevoid volume is 330 cc Postvoid volume is 7 the cc No evidence of bladder mass nor diverticuli. Ureterovesical jets: Both identified and appear symmetrical IMPRESSION: 1. Benign cysts in left kidney again noted. Does not require further workup. No solid lesions in either kidney. 2. No evidence of nephrolithiasis nor hydronephrosis. Increased amount of postvoid residual urine in the bladder (70 cc) DATA REPOSITORY:
== END 2025-02-26 03:00 ==
LOC: DI 02:40
PROVIDERS: PCP Family Medicine; Visit Provider Family Medicine
DX: N28.1 Cyst of kidney, acquired (principal)
CPT/HCPCS: 76770

== ENCOUNTER 2025-03-06 07:45 | Outpatient (CLI) | payer MEDICARE, SELFPAY ==
--- NOTE | 2025-03-06 07:45 | RT.EKG_ITS ---
APPROVED REPORT Exam: Resting ECG Reason for Exam: PAF Patient Location: O HR:57 bpm ECG Measurements Heart Rate 57 AXIS MS 208 P [id number] QRSd 151 QRS -24 QT 467 T 128 QTc 455 Conclusion Atrial and ventricular paced rhythm
== END 2025-03-06 07:46 | disposition home or self-care (01) ==
LOC: DI.CARD 07:45
PROVIDERS: PCP Family Medicine; Visit Provider Internal Medicine Cardiovascular Disease
DX: I44.1 Atrioventricular block, second degree (principal); Z95.0 Presence of cardiac pacemaker; R00.2 Palpitations
CPT/HCPCS: 93010

== ENCOUNTER → 2025-03-06 10:54 | Outpatient (BNVA) | payer MEDICARE, SELFPAY | PROVIDERS: PCP Family Medicine; Visit Provider Internal Medicine Cardiovascular Disease | DX: I48.0 Paroxysmal atrial fibrillation (principal); Z95.0 Presence of cardiac pacemaker; I44.1 Atrioventricular block, second degree; R00.2 Palpitations; Z79.01 Long term (current) use of anticoagulants | CPT/HCPCS: 99213; 93005 ==

== ENCOUNTER → 2025-04-11 13:51 | Outpatient (BNVA) | payer MEDICARE, SELFPAY | PROVIDERS: PCP Family Medicine; Referring Provider Family Medicine; Visit Provider Internal Medicine Cardiovascular Disease | DX: I44.1 Atrioventricular block, second degree (principal); I44.39 Other atrioventricular block; R06.09 Other forms of dyspnea; Z45.018 Encounter for adjustment and management of other part of cardiac pacemaker | CPT/HCPCS: 93280 ==

== ENCOUNTER 2025-05-16 12:55 | Outpatient (REF) | payer MEDICARE, SELFPAY ==
[2025-05-16 14:44] LABS: ALT 39 U/L (16-63); AST 17 U/L (15-37); Albumin 4.4 g/dL (3.4-5.0); Alkaline Phosphatase 52 U/L (46-116); Anion Gap 6.2 mmol/L (3-11); BUN 25 mg/dL (7-18); Bilirubin, Total 1.0 mg/dL (0.2-1.0); CO2 31.8 mmol/L (21.0-32.0); Calcium 9.5 mg/dL (8.5-10.1); Chloride 103 mmol/L (98-107); Cholesterol 156 mg/dL (<200); HDL Cholesterol 56 mg/dL (>or=40); Potassium 4.2 mmol/L (3.5-5.1); Sodium 141 mmol/L (136-145); Total Protein 7.1 g/dL (6.4-8.2)
[2025-05-16 14:48] LABS: Glucose 132 mg/dL (74-106)
== END 2025-05-16 12:56 | disposition home or self-care (01) ==
LOC: NCHCN 12:55
PROVIDERS: PCP Family Medicine; Visit Provider Family Medicine
DX: I10 Essential (primary) hypertension (principal); E78.5 Hyperlipidemia, unspecified
CPT/HCPCS: 80053; 80061

== ENCOUNTER → 2025-05-17 02:04 | Outpatient (CLI) | payer MEDICARE, SELFPAY ==
--- NOTE | 2025-05-17 14:02 | DI.US_ITS ---
APPROVED REPORT EXAM: Comprehensive 2D, Doppler, and color-flow Echocardiogram Patient Location: Out-Patient Steamer Operator: Yani Duarte RDCS (AE) Indications: Dyspnea on exertion Other Information Study Quality: Good Conclusion Normal left ventricular wall thickness and chamber size. Ejection fraction is 55 to 60%. Wall motion is normal Normal right ventricular size and function Both atria are normal in size Device lead noted in the right heart Mild mitral annular calcification, trace to mild mitral regurgitation Mild tricuspid regurgitation. Estimated right ventricular systolic pressure is 41 mmHg Wall motion Left Ventricle The left ventricle is normal size. The left ventricular systolic function is normal. The left ventricular ejection fraction is within the normal range. There is normal left ventricular wall thickness. There is normal LV segmental wall motion. There is no ventricular septal defect visualized. LVEF is 57%. Right Ventricle The right ventricle is normal size. The right ventricular systolic function is normal. Pacemaker lead is present in the right ventricle. Atria The left atrium size is normal. The right atrium size is normal. The interatrial septum is intact with no evidence for an atrial septal defect. Aortic Valve The aortic valve is normal in structure. Aortic valve is trileaflet. There is no aortic valvular stenosis. No aortic regurgitation is present. Mitral Valve Mild mitral annular calcification. No evidence of mitral valve stenosis. Trace to mild mitral regurgitation. Tricuspid Valve The tricuspid valve is normal in structure. There is no tricuspid valve stenosis. Mild tricuspid regurgitation. The RVSP is 40.7 mmHg. Pulmonic Valve The pulmonary valve is normal in structure. There is no pulmonic valvular stenosis. Trace pulmonic regurgitation. Great Vessels The aortic root is normal in size. The ascending aorta is normal in size. Aortic arch is normal in caliber. IVC is normal in size and collapses >50% with inspiration. Pericardium There is no pericardial effusion. 2D Dimensions IVSD d PLAX 1.13 cm M: 0.6-1.2 Ao Root d 3.71 cm M: 3.1 - 3.7 LVPW d PLAX 1.10 cm M: 0.6 - 1.2 Ao Asc Diam d 3.36 cm M: 2.6 - 3.4 LVID d PLAX 4.93 cm M: 4.2 - 5.8 LVDs 3.43 cm M: 2.5 - 4.0 LV EF Teichholz 57.7 % FS 30.45 % LV EDV (Teich) 114.2 mL LV ESV (Teich) 48.3 mL M-Mode TAPSE 2.69 cm (M/F) >1.7 Auto EF LV EDV A4C 127.4 mL LV EDV A2C 112.2 mL LV EDV BP 123.2 mL LV ESV A4C 56.3 mL LV ESV A2C 49.3 mL LV ESV BP 52.0 mL LVEF(%) A4C 55.8 % LVEF(%) A2C 56.1 % LVEF(%) BP 57.8 % LV SV A4C 71.2 ml LV SV A2C 62.9 ml LV SV BP 71.2 ml LV CO A4C 4.0 L/min LV CO A2C 3.5 L/min LV CO BP 3.7 L/min HR A4C 56.52 BPM HR A2C 54.95 BPM LV EDV Index (BP) LA Volume LA Length A4C 4.8 cm LA Length A2C 5.4 cm LA Area A4C s 14.59 cm2 LA Area A2C s 21.49 cm2 LA Vol A4C A-L 37.27 mL LA Vol A2C A-L 72.85 mL LA Vol Biplane A-L 54.9 mL LA Vol/BSA A4C A-L LA Vol/BSA A2C A-L LA Vol/BSA BP A-L 28.9 mL/m2 LA Vol A4C MOD 34.6 mL LA Vol A2C MOD 68.2 mL LA Vol BP MOD 50.8 mL RA Volume RA Area A4C 11.5 cm2 RA ESV A4C (A-L) 24.0mL RA Vol/BSA A4C A-L RA Length A4C 4.7 cm RA ESV A4C (MOD) 23.9mL LV Diastology MV E' medial 0.062 (>0.07 m/s) MV E Vmax 0.82 (0.4-1.3 m/s) MV E/E' MED 13.25 (<14) MV A Vmax 0.70 (0.4-1.3 m/s) MV E' lateral 0.087 (>0.1 m/s) E/A Ratio 1.2 MV E/E' LAT 9.33 (<14) MV E' Average 0.075 m/s MV E/E'(average) 10.95 Aortic Valve AoV Vmax 1.31 m/s LVOT Vmax 1.00 m/s AoV Peak Grad 6.9 mmHg LVOT Peak Grad 4.0 mmHg AoV Area (Vmax) 2.27 cm2 LVOT VTI 0.212 m AoV VTI 0.322 m LVOT Mean Grad 2.1 mmHg AoV Mean Shawn. 0.96 m/s LVOT SV 62.75 mL AoV Mean Grad 4.2 mmHg LVOT Diam s 1.90 cm AoV Area (VTI) 1.95 cm2 AV Regurg Peak Gr. 6.85 mmHg Velocity Ratio 0.76 Mitral Valve MV DT 206 (160-240 msec) MV Vmax TIPS 0.74 m/s MV Mean Grad 0.9 (<2mmHg) MV VTI 0.315 m Pulmonary Valve PV Vmax 1.12 (0.5-1.5 m/s) RVOT Vmax 0.71 m/s PV Peak Grad 5.0 mmHg RVOT Peak Gr. 2.0 mmHg PV Mean Shawn 0.78 m/s RVOT VTI 0.167 m PV Mean Grad 2.7 mmHg RVOT Mean Gr. 1.2 mmHg Tricuspid Valve RA Pressure 3.00 mmHg TR Vmax 3.07 m/s TV S' 0.15 m/s TR Peak Grad 37.7 mmHg RVSP (TR) 40.7 mmHg
== END ==
LOC: DI 02:04
PROVIDERS: PCP Family Medicine; Visit Provider Internal Medicine Cardiovascular Disease
DX: I44.1 Atrioventricular block, second degree (principal); I44.39 Other atrioventricular block; R06.09 Other forms of dyspnea; I08.1 Rheumatic disorders of both mitral and tricuspid valves
CPT/HCPCS: 93306

== ENCOUNTER → 2025-05-24 02:23 | Outpatient (CLI) | payer MEDICARE, SELFPAY ==
--- NOTE | 2025-05-24 07:00 | DI.NM_ITS ---
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, HLD, BPH, asthma, renal insufficiency, polyneurophathy, former smoker, afib, HTN Cardiac Medications: Atorvastatin, omeprazole, zolpidem, proair, arnuity ellipta, losartan-hydrochlorothiazide, apixaban, metoprolol succinate Allergies: lisinopirl Cardiac Risk Factors: Family hx, HTN, HLD, asthma, former smoker Previous Cardiac Procedures: Pacemaker placement (2021) Pretest Chest Pain Characteristics: None Exercise History: Physically active Physical Disabilities: None Lung Sounds: Clear to auscultation Heart Sounds: Regular Stress Test Details Test: Pharmacologic stress testing performed using 0.4 mg of regadenoson per 5 mL given IV over 10 seconds. Reason for pharmacologic stress test: Pacemaker. Nuclear Acquisition: Rest Tc-99m/Stress Tc-99m 1 day Rest Isotope: Tc-99m Sestamibi. Dose: 10.0 Date: 05/24/2025 Injection Time: 0945 Stress Isotope: Tc-99m Sestamibi. Dose: 30.0 Date: 05/24/2025 Injection Time: 1135 HR Resting HR Supine: 63 bpm Max Heart Rate (APMHR): 147 bpm Target HR (85% APMHR): 125 bpm Max HR Achieved: 113 bpm % of APMHR: 77 Recovery HR: 63 bpm BP Resting BP Supine: 148/78 mmHg Max BP: 158/80 mmHg Recovery BP: 142/72 mmHg ECG Resting ECG: Paced Stress ECG: Paced ST Change: Nondiagnostic low heart rate Recovery ECG: Paced Recovery ST Change: Nondiagnostic low heart rate Clinical Stress Symptoms: Moderate SOB, 8/10 chest pressure Angina Score: Non-Limiting Rate Pressure Product: 15248 Stress ECG Conclusion 1. EKG showed atrial and ventricular pacing 2. Patient underwent testing using pharmacologic stress with regadenoson 3. The electrocardiographic portion of the test was nondiagnostic 4. See MPI report Stress Test Summary STAGE HR BP SpO2 Symptoms NOTES Supine 63 148/78 97% 1 min post Lexiscan injection 65 158/80 97% 3 min post Lexiscan injection 72 122/72 6 min post Lexiscan injection 63 142/72 98% Hazel test performed r/t pacemaker. Patient c/o mod SOB and 8/10 chest pain s/p hazel admin. All symptoms resolved by test end. Patient proceeded to imaging ambulatory in no apparent distress. MPI Conclusion Myocardial perfusion was normal. There is no ischemia or evidence of prior infarction Ejection fraction was 60% with normal wall motion
[2025-05-24] MEDS: Regadenoson 0.4 MG/5 ML SYR IVP (11:45)
== END ==
LOC: DI 02:23
PROVIDERS: PCP Family Medicine; Visit Provider Registered Nurse
DX: R06.09 Other forms of dyspnea (principal); I49.1 Atrial premature depolarization
CPT/HCPCS: 78452; 93016; 93018; 93017; J2785

== ENCOUNTER 2025-06-02 09:46 | Emergency (ER) | payer MEDICARE, SELFPAY ==
[2025-06-02] VITALS (20 sets, daily range): BP systolic 165–195; BP diastolic 69–81; PULSE 50–64; RESP 12–24; TEMP 36.8; O2SAT 96–100
--- NOTE | 2025-06-02 09:45 | RT.EKG_ITS ---
APPROVED REPORT Exam: Resting ECG Reason for Exam: Chest Pain Patient Location: E HR:52 bpm ECG Measurements Heart Rate 52 AXIS VT 165 P [id number] QRSd 157 QRS -31 QT 494 T 118 QTc 460 Conclusion Atrial-paced complexes...other complexes also detected Left bundle branch block...QRSd>120, broad/notched R Physician: no STEMI, relatively unchanged from prior
--- NOTE | 2025-06-02 10:15 | DI.RAD_ITS ---
Exam(s) XR CHEST 2V PA LATERAL EXAM: XR CHEST 2V PA LATERAL CLINICAL HISTORY: Chest pain w TERRY TECHNIQUE: 2D digital imaging was performed. Two views. COMPARISON: CR,XR XR CHEST 2V PA LATERAL from 01/15/2021 FINDINGS: HEART: Normal size. Pacemaker. Aorta: Not dilated. PULMONARY VASCULATURE: Normal. MEDIASTINUM: Unremarkable. LUNGS: Minimal linear densities in the right lower lobe, likely atelectasis or scarring. The lungs are otherwise clear. PLEURAL SPACE: No pleural effusion or pneumothorax. BONE:Unremarkable for age. SOFT TISSUES: Unremarkable. IMPRESSION: No acute abnormality. Minimal right basilar atelectasis versus scarring. The preliminary [facility] report was reviewed. DATA REPOSITORY: RADIATION DOSE DELIVERED:
--- NOTE | 2025-06-02 10:27 | ED.GENADUL_ITS ---
Discharge Plan Disposition Patient Disposition: Home Discharge Details Clinical Impression: Dyspnea on exertion, Chest pain Primary Care Provider: Aleta Barone ED Provider: Fe Rivera Home Meds and New Rx's Prescriptions: New amoxicillin-pot clavulanate 875-125 mg tablet 1 tab PO BID 5 Days Qty: 10 0RF doxycycline hyclate 100 mg capsule 100 mg PO BID Qty: 10 0RF No Action multivitamin Tablet 1 tab PO DAILY atorvastatin 20 mg tablet 20 mg PO DAILY Qty: 90 3RF omeprazole 20 mg capsule,delayed release(DR/EC) 20 mg PO DAILY zolpidem [Ambien] 10 mg tablet 10 mg PO ONCE PRN (Reason: insomnia) albuterol sulfate [ProAir HFA] 90 mcg/actuation HFA aerosol inhaler 2 inh inhalation Q4H PRN losartan-hydrochlorothiazide 100-25 mg tablet 1 tab PO DAILY fluticasone furoate [Arnuity Ellipta] 100 mcg/actuation blister with device 1 inh inhalation DAILY PRN Eliquis 5 mg tablet See Rx Instructions .ROUTE .COMPLEX Qty: 180 3RF Dose Instruction: TAKE ONE TABLET BY MOUTH TWICE A DAY Rx Instructions: TAKE ONE TABLET BY MOUTH TWICE A DAY metoprolol succinate 50 mg tablet extended release 24 hr See Rx Instructions .ROUTE .COMPLEX Qty: 90 3RF Dose Instruction: TAKE ONE TABLET BY MOUTH EVERY DAY Rx Instructions: TAKE ONE TABLET BY MOUTH EVERY DAY ibuprofen 200 mg capsule 400 mg PO PRN PRN Discharge Instructions Additional Instructions: Your workup today was reassuring, however I recommend that you continue patient evaluation of your shortness of breath on exertion. There was a question of a small infiltrate on your chest x-ray that may indicate early pneumonia. We have opted to use watchful waiting rather than treat for pneumonia since there is low suspicion for that at this time. You are being prescribed antibiotics to take in case you develops symptoms such as coughing, shortness of breath, fever/chills, general malaise. If you do start antibiotics, please take the full course as prescribed. Return to emergency care if you develop new chest pains, difficulty breathing, episodes of feeling like you are to pass out, or if you are very worried and need to be rechecked again immediately Stand Alone Forms: Portal Information Discharge Data Discharge Date/Time-TO BE ENTERED AT DEPARTURE: 06/02/25 12:30 HPI General Date/Time Provider Initiated Documentation: 06/02/25 10:07 . HPI Narrative: Ishan is a 74-year-old male presents emergency department today for evaluation of left-sided chest pain and dyspnea with lightheadedness on exertion. He reports that he had an incident last night where he was cleaning, says he was lifting a vacuum loom cleaner and all of a sudden felt 4/ 0 chest pain and difficulty catching his breath. This resolved with rest. He says that this occurs whenever he exerts himself. He says that he had the same symptoms when he had a negative stress test last week performed here at [facility]. Admits that there was a lot of dust/powder from spray foam insulation that he was cleaning up, says that he did notice some wheezing during this episode. Denies recent illness such as fever/chills, congestion, sore throat, cough. Denies recent change in p.o. intake, pedal edema, change in bowel or bladder function, black/tarry stools. He is on anticoagulation with Eliquis for A-fib. Denies h/o cancer, recent surgery/immobility, hormone use, h/o blood clots or coagulopathy. PMH significant for HTN, HLD, second-degree AV block paroxysmal A-fib, intermittent asthma, disease, BPH, renal insufficiency. Related Data Home Medications Medication Instructions Recorded Confirmed atorvastatin 20 mg tablet 20 mg PO DAILY #90 tabs 05/1206/02/25 omeprazole 20 mg capsule,delayed 20 mg PO DAILY 06/02/25 release zolpidem 10 mg tablet (Ambien) 10 mg PO ONCE PRN insom ruben 07/04/20 06/02/25 ibuprofen 200 mg capsule 400 mg PO PRN PRN 08/27/20 1 08/02/24 albuterol sulfate 90 mcg/actuation 2 inh inhalation Q4 H PRN 10/15/21 06/02/25 aerosol inhaler (ProAir HFA) fluticasone furoate 100 1 inh inhalation DAILY PRN 1 08/23/23 06/02/25 mcg/actuation blister powder for inhalation (Arnuity Ellipta) losartan 100 1 tab PO DAILY 06/22/2405/13/ mg-hydrochlorothiazide 25 mg tablet multivitamin 1 tab PO DAILY 06/29/2405/13 apixaban 5 mg tablet (Eliquis) See Rx Instructions .[place] 11/28/24 06/02/25 .COMPLEX #180 tabs metoprolol succinate 50 mg See Rx Instructions .Route 02/20/25 06/02/25 tablet,extended release 24 hr .COMPLEX #90 tabs amoxicillin 875 mg-potassium 1 tab PO BID 5 days #10 t abs 06/02/25 clavulanate 125 mg tablet doxycycline hyclate 100 mg capsule 100 mg PO BID #10 c aps 06/02/25 Previous Rx's Medication Instructions Recorded atorvastatin 20 mg tablet 20 mg PO DAILY #90 tabs 05/12 01/28 apixaban 5 mg tablet (Eliquis) See Rx Instructions .[place] 11/28/24 .COMPLEX #180 tabs metoprolol succinate 50 mg See Rx Instructions .Route 02/20/25 tablet,extended release 24 hr .COMPLEX #90 tabs amoxicillin 875 mg-potassium 1 tab PO BID 5 days #10 t abs 06/02/25 clavulanate 125 mg tablet doxycycline hyclate 100 mg capsule 100 mg PO BID #10 c aps 06/02/25 Allergies Allergy/AdvReac Type Severity Reaction Status Date / Time lisinopril AdvReac Mild Visual Verified 06/02/25 09:52 Disturbance SOLANGE Inhibitors AdvReac Unknown Unknown Verified 06/02/25 09:52 General Stated Complaint: Chest Pain FARHAN: 3 Review of Systems Narrative: see HPI Exam Const General: cooperative, healthy appearing, comfortable and no acute distress Nutritional Appearance: overweight Orientation: alert and oriented x3 HENMT Head: normal to inspection Ears: hearing grossly normal bilaterally General nose exam: external nose normal Face and sinus: normal facial exam Resp Effort & Inspection: normal respiratory effort and able to speak in complete sentences Auscultation: clear to auscultation bilaterally Cardio Rate: regular rate Rhythm: regular rhythm Heart Sounds: no murmurs Pulses: radial pulses present GI Inspection: normal to inspection and non-distended Palpation: soft, not firm, no guarding and nontender Skin General skin exam: no rashes or lesions noted Extrem General: normal to inspection, capillary refill normal and no pedal edema Course Vital Signs Vital signs: Vital Signs Temperature 36.8 C 06/02/25 10:08 Pulse 64 06/02/25 10:08 Respiratory Rate 16 11/22/25 10:08 Blood Pressure 193/72 H 06/02/25 10:08 Pulse Oximetry 99 06/02/25 10:08 Temperature 36.8 C 06/02/25 10:08 Temperature Source Oral 06/02/25 10:08 Pulse 64 06/02/25 10:08 Respiratory Rate 16 06/02/25 10:08 Respiratory Effort Short of Breath 06/02/25 10:09 Respiratory Depth Normal 06/02/25 10:09 Respiratory Pattern Normal 06/02/25 10:09 Blood Pressure 193/72 H 06/02/25 10:08 Blood Pressure Mean 112 06/02/25 10:08 Pulse Oximetry 99 06/02/25 10:08 Oxygen Delivery Method Room Air 06/02/25 10:08 Oxygen Flow Rate 0 06/02/25 10:08 Pain Level 0 06/02/25 09:49 Medical Decision Making Ishan is a 74-year-old male with recent negative stress test who presents to the emergency department for dyspnea on exertion accompanied by 4/10 left-sided chest discomfort. This is relieved with rest, no symptoms at this time. Last episode yesterday while cleaning. Physical exam reassuring. Patient and oriented, no acute distress. He is in good breathing, lung sounds clear bilaterally. Normal heart sounds. No obvious JVD or pedal edema. DDx includes was not limited to: ACS, CHF, arrhythmia, valvular dysfunction, symptomatic anemia, asthma/COPD, pleural effusion, kidney failure, electrolyte imbalance, thyroid dysfunction I independently interpreted the following tests: EKG shows rate 52, LBBB with atrial paced complexes, does not meet Sgarbossa criteria. CBC, magnesium, and serial troponins unremarkable. BNP slightly elevated at 535, no changes consistent with pulmonary vascular congestion on chest x-ray. Mildly elevated bilirubin at 1.3. No acute abnormalities noted on chest x-ray, radiologist did note atelectatic and/or early infiltrative changes noted within the right lower lobe. Overall workup today unremarkable, unclear etiology of dyspnea on exertion/chest discomfort. I do recommend close follow-up with PCP and visualizer for further evaluation and outpatient basis. I did review chest x-ray findings with Ishan, low suspicion for pneumonia at this time, however will provide antibiotics for watchful waiting if symptoms do appear consistent with pneumonia. Discharge instructions with patient, including red flag symptoms indicating need for return to emergency care. I did review stress test records from 05/24/2025, myocardial perfusion scan showed normal perfusion, no ischemia or evidence of prior infarction. EF 60% with no wall motion abnormalities. No EKG changes noted during stress test. Imaging Data Radiologic Study: Radiologist's impression: PROCEDURE INFORMATION: Exam: XR Chest Exam date and time: 06/02/2025 10:57 AM Age: 74 years old Clinical indication: Other: Chest pain w gallegos TECHNIQUE: Imaging protocol: Radiologic exam of the chest. Views: 2 views. Total images: 1 COMPARISON: CR XR CHEST 2V PA LATERAL 01/15/2021 4:01 PM FINDINGS: Tubes, catheters and devices: A pacemaker device is present, its leads in appropriate position. Lungs: Atelectatic and/or early infiltrative changes noted within the right lower lobe. Pleural spaces: No pleural effusion. No pneumothorax. Heart/Mediastinum: No cardiomegaly. Bones/joints: Degenerative changes of the thoracic spine. IMPRESSION: Atelectatic and/or early infiltrative changes noted within the right lower lobe. PFSH All Active Problems (Updated 06/02/25 @ 12:11 by Fe Garrido) Chest pain (Acute) Dyspnea on exertion (Acute) Former smoker (Acute) Paroxysmal atrial fibrillation (Acute) Pacemaker (Acute) Seasonal allergies (Acute) Asthma, intermittent (Acute) Renal insufficiency (Chronic) [place]'s disease (Acute) Lipoma (Acute) Leg pain, bilateral (Acute) Hyperlipidemia (Acute) Insomnia (Acute) Prediabetes (Acute) Neck pain (Acute) Hearing loss, bilateral (Acute) Pain, joint, ankle, left (Acute) Pain, joint, shoulder, left (Acute) High-grade atrioventricular block (Acute) Palpitations (Acute) Second degree AV block, Mobitz type I (Acute) 01/09/22 [place] [employer] dual chamber pacemaker ([employer] MRI DR IS-1 Model #[id number] serial #[id number] Palpitations (Acute) Carpal tunnel syndrome of right wrist (Acute) Posterior tibialis tendon insufficiency (Acute) Injection: 04/23/2020; 12/05/19 BPH w urinary obs/LUTS (Chronic) Erectile dysfunction due to arterial insufficiency (Chronic) Polyneuropathy (Acute 10/10/13) Medical History Hx of skin cancer, basal cell Tobacco consumption Asthma Atrioventricular block, first degree Barretts esophagus Chronic low back pain Hypertension Claudication Surgical History History of esophagogastroduodenoscopy (~08/2024) History of colonoscopy (~08/2024) Path report 3-10 years Social History Smoking/Tobacco Use Status: Former Tobacco Use Quit Date: 07/12/87 Pack-years: 17 Tobacco: How many years used: 17 Smoking risk assessment performed?: Yes Alcohol Intake: current Alcohol Intake frequency: 0-2 drinks per day Drug use: Never Substance use type: does not use Household members: spouse and children Housing: house Number of Children: 3 current occupation: retired musician Pets and animals: Yes Current gender identity: male What is your relationship status?: Panel score (0-1 are the most socially isolated patients): 1 Seatbelt use: always Do you feel safe at home: Yes Do you feel safe in your relationship?: Yes PAWSS Have you Been Recently Intoxicated or Drunk Within the Last 30 days?: No Have you Ever Experienced Previous Episodes of Alcohol Withdrawal?: No Have you ever Experienced Withdrawal Seizures?: No Have you ever Experienced Delirium Tremens(DT)s?: No Have you ever undergone Alcohol Rehabilitation Treatment (i.e, inpt ot outpatient treatment programs)?: No Have you ever Experienced Blackouts?: No Have you ever Combined Alcohol with other Downers within the last 90 days?: No Have you ever Combined Alcohol with any other Substance of Abuse during the last 90 days?: No Result: 0
[2025-06-02 10:34] LABS: Abs Immature Grans 0.02 10^3/uL (0.0-0.06); HCT 40.7 % (40.0-50.0); HGB 14.2 g/dL (13.5-17.5); Immature Grans % 0.4 %; MCH 32.7 pg (27.0-33.0); MCHC 34.9 % (32.0-36.0); MCV 94 fL (80-95); MPV 10.3 fL (8.0-11.0); Platelet Count 186 10^3/uL (130-400); RBC 4.34 10^6/uL (4.36-5.78); RDW 12.3 % (11.8-14.1); RDW-SD 42.4 fL; WBC 5.68 10^3/uL (4.4-10.8)
[2025-06-02 10:50] LABS: Magnesium 2.1 mg/dL (1.6-2.6)
[2025-06-02 10:51] LABS: Troponin I 7 ng/L (<54)
[2025-06-02 10:52] LABS: ALT 35 U/L (10-49); AST 27 U/L (<34); Albumin 4.8 g/dL (3.4-5.0); Alkaline Phosphatase 51 U/L (46-116); Anion Gap 8.9 mmol/L (3-11); BUN 18 mg/dL (9-23); Bilirubin, Total 1.30 mg/dL (0.2-1.2); CO2 30.1 mmol/L (20.0-31.0); Calcium 9.7 mg/dL (8.3-10.6); Chloride 104 mmol/L (98-107); Glucose 138 mg/dL (74-106); Potassium 4.1 mmol/L (3.5-5.1); Sodium 143 mmol/L (136-145); Total Protein 7.1 g/dL (5.7-8.2)
--- NOTE | 2025-06-02 11:11 | DI.VRAD_ITS ---
PROCEDURE INFORMATION: Exam: XR Chest Exam date and time: 06/02/2025 10:57 AM Age: 74 years old Clinical indication: Other: Chest pain w gallegos TECHNIQUE: Imaging protocol: Radiologic exam of the chest. Views: 2 views. Total images: 1 COMPARISON: CR XR CHEST 2V PA LATERAL 01/15/2021 4:01 PM FINDINGS: Tubes, catheters and devices: A pacemaker device is present, its leads in appropriate position. Lungs: Atelectatic and/or early infiltrative changes noted within the right lower lobe. Pleural spaces: No pleural effusion. No pneumothorax. Heart/Mediastinum: No cardiomegaly. Bones/joints: Degenerative changes of the thoracic spine. IMPRESSION: Atelectatic and/or early infiltrative changes noted within the right lower lobe. Dictated and Authenticated by: Marek Mayo MD. Orderin Alba Miramontes MD
[2025-06-02 11:28] LABS: Troponin I 6 ng/L (<54)
== END 2025-06-02 12:30 | disposition home or self-care (01) ==
PROVIDERS: Emergency Provider Nurse Practitioner Family; PCP Family Medicine
DX: R07.9 Chest pain, unspecified (principal); R06.09 Other forms of dyspnea; I10 Essential (primary) hypertension
CPT/HCPCS: 99284 ×2; 36415; 80053; 93005; 71046; 83735; 83880; 84484; 85025; 93010

== ENCOUNTER → 2025-06-05 12:51 | Outpatient (BNVA) | payer MEDICARE, SELFPAY | PROVIDERS: PCP Family Medicine; Referring Provider Family Medicine; Visit Provider Internal Medicine Cardiovascular Disease | DX: R06.09 Other forms of dyspnea (principal) | CPT/HCPCS: 99214 ==